=== PATIENT | male | born 1960 | race Caucasian/White ===

== ENCOUNTER 2017-12-23 19:18 | Inpatient (IN) | payer OTHER ==
[~2017-12-23] VITALS: Ht 167.6 cm; Wt 57.2 kg
[2017-12-23] MEDS ORDERED: SODIUM CHLOR 0.9% 1000 ML INJ 1,000 ML IV ONE (19:31)
--- NOTE | 2017-12-23 19:33 | PD ---
HPI Chief Complaint: Eye Problems/Injury Time Seen by Provider: 19:31 Travel History International Travel<30 days: No Contact w/Intl Traveler<30days: No Traveled to known affect area: No History of Present Illness HPI Patient is a 57-year-old male presents emergency department for evaluation of altered mental status. Patient fairly somnolent on arrival is unable to provide much of his history. His only complaints of of left eye swelling and left headache. Per EMS the patient has been complaining of headaches for the past few months and is being worked up in the assisted. He reportedly had an MRI a few days ago but does not know the results yet and has have not been given to him. Not much else is readily available for the history on the patient's arrival. He is escorted by guards from the assisted. [facility] Past Medical History Cancer: Yes (SQUAMOUS CELL ) High Cholesterol: Yes Medical other: Yes (TRIGEMINAL NEURALGIA) Past Surgical History Abdominal Surgery: Yes (HERNIA ) Other Surgery: Yes ("CANCER REMOVED FROM SABIANISM, EAR, NECK AND RIGHT CHEST") Social History Alcohol Use: No Tobacco Use: No Substance Use: No Allergies-Medications (Allergen,Severity, Reaction): Coded Allergies: No Known Allergies (Unverified , 12/23/17) Reported Meds & Prescriptions Reported Meds & Active Scripts Active Reported Pravastatin 20 Mg Tab 20 Mg PO DAILY Zocor (Simvastatin) 5 Mg Tab 5 Mg PO DAILY Review of Systems Except as stated in HPI: all other systems reviewed are Neg Physical Exam Narrative GENERAL: Well-developed, thin male, somnolent bordering on lethargic. Appears older than stated age. SKIN: Focused skin assessment warm/dry. On the left side of his face there is a silver dollar sized area of scar tissue which is well-healed on the left temporal area. EMS states this is from a previous skin cancer which was removed. HEAD: Atraumatic. Normocephalic. EYES: Pupils equal and round. No scleral icterus. No injection or drainage. ENT: No nasal bleeding or discharge. Mucous membranes pink and moist. TMs clear bilaterally, there is some tenderness and area of air edema on the eyelid on the left side, no erythema, conjunctive the are noninflamed. NECK: Trachea midline. No JVD. CARDIOVASCULAR: Regular rate and rhythm. No murmur appreciated. RESPIRATORY: No accessory muscle use. Clear to auscultation. Breath sounds equal bilaterally. GASTROINTESTINAL: Abdomen soft, non-tender, nondistended. Hepatic and splenic margins not palpable. MUSCULOSKELETAL: No obvious deformities. No clubbing. No cyanosis. No edema. NEUROLOGICAL: Awake and alert. Sluggish to respond, follows commands in all 4 extremities, PSYCHIATRIC: Appropriate mood and affect; insight and judgment normal. Data Data Last Documented VS Vital Signs Date Time Temp Pulse Resp B/P (MAP) Pulse Ox O2 Delivery O2 Flow Rate FiO2 12/23/17 19:46 99.0 92 14 160/90 (113) 96 Room Air Orders Orders Complete Blood Count With Diff (12/23/17 19:31) Basic Metabolic Panel (Bmp) (12/23/17 19:31) Ct Brain W/O Iv Contrast(Rout) (12/23/17 19:31) Ecg Monitoring (12/23/17 19:31) Iv Access Insert/Monitor (12/23/17 19:31) Oximetry (12/23/17 19:31) Sodium Chloride 0.9% Flush (Ns Flush) (12/23/17 19:45) Ketorolac Inj (Toradol Inj) (12/23/17 19:45) Diphenhydramine Inj (Benadryl Inj) (12/23/17 19:45) Metoclopramide Inj (Reglan Inj) (12/23/17 19:45) Sodium Chlor 0.9% 1000 Ml Inj (Ns 1000 M (12/23/17 19:31) Ct Facial Bones W/O Iv Cont (12/23/17 ) Drug Screen, Random Urine (12/23/17 19:31) Alcohol (Ethanol) (12/23/17 19:31) Cath For Specimen (12/23/17 19:31) Labs Laboratory Tests Test 12/23/17 19:50 White Blood Count 14.4 TH/MM3 Red Blood Count 3.48 MIL/MM3 Hemoglobin 8.3 GM/DL Hematocrit 26.4 % Mean Corpuscular Volume 76.0 FL Mean Corpuscular Hemoglobin 23.9 PG Mean Corpuscular Hemoglobin Concent 31.4 % Red Cell Distribution Width 15.5 % Platelet Count 626 TH/MM3 Mean Platelet Volume 6.3 FL Neutrophils (%) (Auto) 76.3 % Lymphocytes (%) (Auto) 14.0 % Monocytes (%) (Auto) 8.7 % Eosinophils (%) (Auto) 0.5 % Basophils (%) (Auto) 0.5 % Neutrophils # (Auto) 11.0 TH/MM3 Lymphocytes # (Auto) 2.0 TH/MM3 Monocytes # (Auto) 1.3 TH/MM3 Eosinophils # (Auto) 0.1 TH/MM3 Basophils # (Auto) 0.1 TH/MM3 CBC Comment DIFF FINAL Differential Comment Blood Urea Nitrogen 7 MG/DL Creatinine 0.72 MG/DL Random Glucose 90 MG/DL Calcium Level 9.1 MG/DL Sodium Level 135 MEQ/L Potassium Level 3.9 MEQ/L Chloride Level 102 MEQ/L Carbon Dioxide Level 25.3 MEQ/L Anion Gap 8 MEQ/L Estimat Glomerular Filtration Rate 113 ML/MIN Urine Opiates Screen NEG Urine Barbiturates Screen NEG Urine Amphetamines Screen NEG Urine Benzodiazepines Screen NEG Urine Cocaine Screen NEG Urine Cannabinoids Screen NEG Ethyl Alcohol Level LESS THAN 3 MG/DL MDM Medical Decision Making Medical Screen Exam Complete: Yes Emergency Medical Condition: Yes Differential Diagnosis Brain mass, rhabdomyolysis, facial trauma, dehydration, substance abuse. Narrative Course Patient was room to the emergency department, altered mental status workup was initiated, shortly after his arrival and received records faxed from the alf , apparently has been altered today and can barely walk and having some non- epileptiform tremors. The patient also had an MRI report faxed from December 19 that shows an extensive tumor involving the left side of his face invading most of his facial bones the base of his skull and part of his brain. Speculation is that this may have been a skin cancer that went unchecked for years and is invaded area however this is only speculation at this time. This information was delivered to the patient, he states that his skin cancer was removed in 2004, he been complaining of headaches for 2 years, his eyes started swelling about 12 months ago and he insisted that he see a neurologist however he states he was declined the opportunity. This is an advanced tumor may be an operable, will be admitted to the hospital for consultations neurosurgery hematology oncology and facial surgery. He may ultimately require palliative care consult. Diagnosis Primary Impression: Neoplasm of face Additional Impression: Brain tumor Admitting Information Admitting Physician Requests: Admit Condition: Farrukh Juarez MD Dec 23, 2017 19:33
[2017-12-23] MEDS ORDERED: ZOCO5TAB PO (19:34)
[2017-12-23] MEDS ORDERED: PRAV20TA2 PO (19:34)
[2017-12-23 19:45] VITALS: O2SAT 98
[2017-12-23] MEDS ORDERED: METOCLOPRAMIDE HCL 10 MG/2 ML VIAL IVP ONE (19:45)
[2017-12-23] MEDS ORDERED: SODIUM CHLORIDE 0.9% FLUSH 10 ML FLUSH IVF PRN (19:45)
[2017-12-23] MEDS ORDERED: diphenhydrAMINE HCL 50 MG/ML VIAL IVP ONE (19:45)
[2017-12-23] MEDS ORDERED: KETOROLAC TROMETHAMINE 30 MG/ML (IVP) VIAL IVP ONE (19:45)
[2017-12-23 19:46] VITALS: BP 160/90; PULSE 92; RESP 14; TEMP 99; O2SAT 96
[2017-12-23 20:10] LABS: BASOPHIL # 0.1 TH/MM3 (0-0.2); BASOPHIL % 0.5 % (0.0-2.0); EOSINOPHIL # 0.1 TH/MM3 (0-0.4); EOSINOPHIL % 0.5 % (0.0-4.0); HEMATOCRIT 26.4 % (39.0-51.0); HEMOGLOBIN 8.3 GM/DL (13.0-17.0); MEAN CORPUSCULAR HEMOGLOBIN 23.9 PG (27.0-34.0); MEAN CORPUSCULAR HGB CONC 31.4 % (32.0-36.0); MEAN PLATELET VOLUME 6.3 FL (7.0-11.0); MONO % 8.7 % (0.0-8.0); MONOCYTE # 1.3 TH/MM3 (0-0.9); NEUT % 76.3 % (16.0-70.0); PLATELET COUNT 626 TH/MM3 (150-450); RED BLOOD COUNT 3.48 MIL/MM3 (4.50-5.90); RED CELL DISTRIBUTION WIDTH 15.5 % (11.6-17.2); WHITE BLOOD COUNT 14.4 TH/MM3 (4.0-11.0)
[2017-12-23 20:24] LABS: BICARBONATE 25.3 MEQ/L (21.0-32.0); BLOOD UREA NITROGEN 7 MG/DL (7-18); CALCIUM 9.1 MG/DL (8.5-10.1); CHLORIDE 102 MEQ/L (98-107); CREATININE 0.72 MG/DL (0.60-1.30); GLOMERULAR FILTRATION RATE 113 ML/MIN (>89); GLUCOSE,RANDOM 90 MG/DL (74-106); SODIUM (NA) 135 MEQ/L (136-145)
[2017-12-23] MEDS ORDERED: MORPHINE SULFATE 4 MG/ML INJ IV PUSH ONE (21:00)
--- NOTE | 2017-12-23 21:05 | RADRPT ---
EXAM DATE/TIME: 12/23/2017 20:20 [facility] COMPARISON: No previous studies available for comparison. INDICATIONS : Cephalgia and left side facial swelling. RADIATION DOSE: 45.79 CTDIvol (mGy) MEDICAL HISTORY : Squamous cell cancer. SURGICAL HISTORY : None. ENCOUNTER: Initial ACUITY: 1 yr PAIN SCALE: 7/10 LOCATION: Left cranial TECHNIQUE: Multiple contiguous axial images were obtained of the head. Using automated exposure control and adj ustment of the mA and/or kV according to patient size, radiation dose was kept as low as reasonably a chievable to obtain optimal diagnostic quality images. DICOM format image data is available electro nically for review and comparison. FINDINGS: There is extensive bony destruction of the bones of the left side of the face especially the left sph enoid sinus, posterior ethmoids, [place] of the left orbit, left zygomatic arch and left Guille apex. Th ere is also some extension of tumor into the left middle cranial fossa. Full extent would be better e valuated with coronal MRI. There is opacification of the left mastoid air cells and left temporal bon e air cells. There is no hydrocephalus. There is left-sided proptosis. CONCLUSION: 1. 6.5 cm soft tissue mass in the posterior left face with extensive bony destruction and extension i nto the middle cranial fossa. Left-sided proptosis. Sotero Herndon MD on December 23, 2017 at 21:01 Board Certified Radiologist. This report was verified electronically.
[2017-12-23 21:08] VITALS: BP 164/89; PULSE 97; RESP 16; O2SAT 97
--- NOTE | 2017-12-23 21:08 | RADRPT ---
EXAM DATE/TIME: 12/23/2017 20:20 [facility] COMPARISON: No previous studies available for comparison. INDICATIONS : Left side facial swelling. RADIATION DOSE: 32.08 CTDIvol (mGy) MEDICAL HISTORY : Squamous cell cancer. SURGICAL HISTORY : None. ENCOUNTER: Initial ACUITY: 2 months PAIN SCORE: 7/10 LOCATION: Left facial TECHNIQUE: Volumetric scanning of the facial bones was performed. Using automated exposure control and adjustme nt of the mA and/or kV according to patient size, radiation dose was kept as low as reasonably achiev able to obtain optimal diagnostic quality images. DICOM format image data is available electronicall y for review and comparison. FINDINGS: There is an aggressive approximately 6.5 cm soft tissue mass in the posterior left face with extensiv e bony destruction the left-sided paranasal sinuses including the maxillary sinus, left sphenoid sinu s and left posterior ethmoids. The mass crosses midline in the sphenoid and posterior nasal region an d extends cephalad into the middle cranial fossa. There is left-sided proptosis and destruction of th e lateral wall of the left orbit. There is also possible involvement of the left cavernous sinus. The re is opacification of left maxillary sinus, posterior left ethmoids and left sphenoid invasion into the soft tissues of the left orbit. CONCLUSION: 1. Extensive bony destruction of the left face as above with extension into the middle cranial fossa. Left-sided proptosis. Sotero Herndon MD on December 23, 2017 at 21:03 Board Certified Radiologist. This report was verified electronically.
[2017-12-23] MEDS ORDERED: BISACODYL 10 MG SUPP RECTAL PRN (23:15)
[2017-12-23] MEDS ORDERED: SODIUM CHLORIDE 0.9% FLUSH 10 ML FLUSH IV FLUSH PRN (23:15)
[2017-12-23] MEDS ORDERED: ACETAMINOPHEN 325 MG TAB PO PRN (23:15)
[2017-12-23] MEDS ORDERED: LACTULOSE SYRUP 20 GM/30 ML CUP PO PRN (23:15)
[2017-12-23] MEDS ORDERED: MAGNESIUM HYDROXIDE SUSP 30 ML CUP PO PRN (23:15)
[2017-12-23] MEDS ORDERED: ONDANSETRON HCL 4 MG/2 ML VIAL IVP PRN (23:15)
[2017-12-23] MEDS ORDERED: SENNOSIDES 8.6 MG TAB PO PRN (23:15)
[2017-12-23] MEDS ORDERED: NALOXONE HCL 0.4 MG/ML AMP IV PUSH PRN (23:15)
[2017-12-24] VITALS (10 sets, daily range): BP systolic 128–153; BP diastolic 80–94; PULSE 72–92; RESP 16–18; TEMP 97.7–99.3; O2SAT 95–98
[2017-12-24] MEDS: MORPHINE SULFATE 4 MG/ML INJ IV PUSH PRN ×7 (00:12→23:56)
--- NOTE | 2017-12-24 00:54 | HHI.HP ---
[facility] Unknown Admission Diagnosis Brain/Face Mass. Diagnoses: Travel History International Travel<30 Days: No Contact w/Intl Traveler <30 Da: No Traveled to Known Affected Are: No History of Present Illness 57-year-old male with a past medical history significant for hypertension and trigeminal neuralgia presents to the emergency department her evaluation of a headache. The patient is incarcerated and has been complaining of headaches that began in September 2013. The patient had an outpatient MRI done which he does not know the results. He reports that he lost eyesight in his left eye and hearing in his left ear in May 2017. He endorses blurry vision and nosebleeds with increasing weakness and left jaw tightness. The patient has a history of squamous cell excision of the left anglican in 2004. Head CT done in the emergency department significant for large soft tissue mass in the posterior left face with extensive bony destruction and extension to the middle cranial fossa. Patient denies any seizures. No chest pain/shortness of breath. No abdominal pain. No nausea/vomiting/diarrhea. Review of Systems Except as stated in HPI: all other systems reviewed are Neg Past Family Social History Past Medical History Hypertension Trigeminal neuralgia Past Surgical History Multiple basal cell carcinomas removed off various parts of the patient's arms and chest Squamous cell carcinoma excision of the left anglican in 2004 with skin graft Tonsillectomy Hernia repair Reported Medications Reported Meds & Active Scripts Active Reported Pravastatin 20 Mg Tab 20 Mg PO DAILY Zocor (Simvastatin) 5 Mg Tab 5 Mg PO DAILY Allergies: Coded Allergies: No Known Allergies (Unverified , 12/23/17) Family History Negative for CAD/DM Social History Positive for tobacco. Denies alcohol and illicit drugs Physical Exam Vital Signs Vital Signs Date Time Temp Pulse Resp B/P (MAP) Pulse Ox O2 Delivery O2 Flow Rate FiO2 12/23/17 21:08 97 16 164/89 (114) 97 Room Air 12/23/17 19:46 99.0 92 14 160/90 (113) 96 Room Air 12/23/17 19:45 98 Room Air 12/23/17 19:28 96 14 Physical Exam GENERAL: Thin, male sitting up in bed SKIN: No rashes, ecchymoses or lesions. Cool and dry. HEAD: Atraumatic. Normocephalic. No temporal or scalp tenderness. EYES: Pupils equal round and reactive. Left proptosis. ENT: Nose without bleeding, purulent drainage or septal hematoma. Throat without erythema, tonsillar hypertrophy or exudate. Uvula midline. Airway patent. NECK: Trachea midline. No JVD or lymphadenopathy. Supple, nontender, no meningeal signs. CARDIOVASCULAR: Regular rate and rhythm without murmurs, gallops, or rubs. RESPIRATORY: Clear to auscultation. Breath sounds equal bilaterally. No wheezes , rales, or rhonchi. GASTROINTESTINAL: Abdomen soft, non-tender, nondistended. No hepato-splenomegaly , or palpable masses. No guarding. MUSCULOSKELETAL: Extremities without clubbing, cyanosis, or edema. No joint tenderness, effusion, or edema noted. No calf tenderness. NEUROLOGICAL: Awake and alert. Cranial nerves II through XII intact. Motor and sensory grossly within normal limits. Normal speech. Laboratory Laboratory Tests Test 12/23/17 19:50 White Blood Count 14.4 Red Blood Count 3.48 Hemoglobin 8.3 Hematocrit 26.4 Mean Corpuscular Volume 76.0 Mean Corpuscular Hemoglobin 23.9 Mean Corpuscular Hemoglobin Concent 31.4 Red Cell Distribution Width 15.5 Platelet Count 626 Mean Platelet Volume 6.3 Neutrophils (%) (Auto) 76.3 Lymphocytes (%) (Auto) 14.0 Monocytes (%) (Auto) 8.7 Eosinophils (%) (Auto) 0.5 Basophils (%) (Auto) 0.5 Neutrophils # (Auto) 11.0 Lymphocytes # (Auto) 2.0 Monocytes # (Auto) 1.3 Eosinophils # (Auto) 0.1 Basophils # (Auto) 0.1 CBC Comment DIFF FINAL Differential Comment Blood Urea Nitrogen 7 Creatinine 0.72 Random Glucose 90 Calcium Level 9.1 Sodium Level 135 Potassium Level 3.9 Chloride Level 102 Carbon Dioxide Level 25.3 Anion Gap 8 Estimat Glomerular Filtration Rate 113 Urine Opiates Screen NEG Urine Barbiturates Screen NEG Urine Amphetamines Screen NEG Urine Benzodiazepines Screen NEG Urine Cocaine Screen NEG Urine Cannabinoids Screen NEG Ethyl Alcohol Level LESS THAN 3 Result Diagram: 12/23/17 1950 12/23/171949 Caprini VTE Risk Assessment Caprini VTE Risk Assessment: No/Low Risk (score <= 1) Caprini Risk Assessment Model Point Value = 1 Point Value = 2 Point Value = 3 Point Value = 5 Age 41-60 Minor surgery BMI > 25 kg/m2 Swollen legs Varicose veins or History of unexplained or recurrent spontaneous Oral contraceptives or hormone replacement Sepsis (< 1 month) Serious lung disease, including pneumonia (< 1 month) Abnormal pulmonary function Acute myocardial infarction Congestive heart failure (< 1 month) History of inflammatory bowel disease Medical patient at bed rest Age 61-74 Arthroscopic surgery Major open surgery (> 45 min) Laparoscopic surgery (> 45 min) Malignancy Confined to bed (> 72 hours) Immobilizing plaster cast Central venous access Age >= 75 History of VTE Family history of VTE Factor V Leiden Prothrombin [id number] Lupus anticoagulant Anticardiolipin antibodies Elevated serum homocysteine Heparin-induced thrombocytopenia Other congenital or acquired thrombophilia Stroke (< 1 month) Elective arthroplasty Hip, pelvis, or leg fracture Acute spinal cord injury (< 1 month) Prophylaxis Regimen Total Risk Factor Score Risk Level Prophylaxis Regimen 0-1 Low Early ambulation 2 Moderate Order ONE of the following: *Sequential Compression Device (SCD) *Heparin 5000 units SQ BID 3-4 Higher Order ONE of the following medications: *Heparin 5000 units SQ TID *Enoxaparin/Lovenox 40 mg SQ daily (WT < 150 kg, CrCl > 30 mL/min) *Enoxaparin/Lovenox 30 mg SQ daily (WT < 150 kg, CrCl > 10-29 mL/min) *Enoxaparin/Lovenox 30 mg SQ BID (WT < 150 kg, CrCl > 30 mL/min) AND/OR *Sequential Compression Device (SCD) 5 or more Highest Order ONE of the following medications: *Heparin 5000 units SQ TID (Preferred with Epidurals) *Enoxaparin/Lovenox 40 mg SQ daily (WT < 150 kg, CrCl > 30 mL/min) *Enoxaparin/Lovenox 30 mg SQ daily (WT < 150 kg, CrCl > 10-29 mL/min) *Enoxaparin/Lovenox 30 mg SQ BID (WT < 150 kg, CrCl > 30 mL/min) AND *Sequential Compression Device (SCD) Assessment and Plan Assessment and Plan Assessment/plan: 1. Large soft tissue mass CT of the head significant for 6.5 cm soft tissue mass in the posterior left base with extensive bony destruction and extension into the middle cranial fossa , personally reviewed Medical oncology, neurosurgery and OMFS consulted, appreciate recommendations and assistance Morphine for pain 2. Hypertension Patient not currently on antihypertensive Clonidine when necessary 3. Trigeminal neuralgia Symptoms may be secondary to mass Morphine as above FEN Regular diet Electrolytes: Replete when necessary Ambulation Physician Certification 2 Midnight Certification Type: Admission for Inpatient Services Order for Inpatient Services The services are ordered in accordance with Medicare regulations or non- Medicare payer requirements, as applicable. In the case of services not specified as inpatient-only, they are appropriately provided as inpatient services in accordance with the 2-midnight benchmark. Estimated LOS (days): 2 2 days is the estimated time the patient will need to remain in the hospital, assuming treatment plan goals are met and no additional complications. Post-Hospital Plan: Not yet determined Melvi Jeffries MD Dec 24, 2017 00:54
[2017-12-24 06:37] LABS: AUTOMATED NEUTROPHIL # 6.2 TH/MM3 (1.8-7.7); BASOPHIL # 0.1 TH/MM3 (0-0.2); EOSINOPHIL # 0.1 TH/MM3 (0-0.4); EOSINOPHIL % 1.2 % (0.0-4.0); HEMATOCRIT 27.6 % (39.0-51.0); HEMOGLOBIN 8.8 GM/DL (13.0-17.0); LYMPH % 21.2 % (9.0-44.0); MEAN CELL VOLUME 76.5 FL (80.0-100.0); MEAN CORPUSCULAR HEMOGLOBIN 24.4 PG (27.0-34.0); MEAN PLATELET VOLUME 6.2 FL (7.0-11.0); NEUT % 65.6 % (16.0-70.0); PLATELET COUNT 644 TH/MM3 (150-450); RED BLOOD COUNT 3.61 MIL/MM3 (4.50-5.90); RED CELL DISTRIBUTION WIDTH 15.5 % (11.6-17.2); WHITE BLOOD COUNT 9.5 TH/MM3 (4.0-11.0)
[2017-12-24 07:05] LABS: BICARBONATE 27.5 MEQ/L (21.0-32.0); CALCIUM 9.5 MG/DL (8.5-10.1); CREATININE 0.8 MG/DL (0.60-1.30)
[2017-12-24] MEDS ORDERED: SODIUM CHLORIDE 0.9% FLUSH 10 ML FLUSH IV FLUSH SCH (09:00)
[2017-12-24] MEDS ORDERED: DOCUSATE SODIUM 50 MG/SENNA 8.6 MG TAB PO SCH (09:00)
[2017-12-24] MEDS ORDERED: ASPI81TA23 PO (10:45)
[2017-12-24] MEDS ORDERED: TEGR400T PO (10:45)
--- NOTE | 2017-12-24 11:14 | RADRPT ---
EXAM DATE/TIME: 12/23/2017 20:20 [facility] COMPARISON: CT FACIAL BONES W/O CONTRAST, December 23, 2017, 20:20. INDICATIONS : Facial/head mass. ; Reconstructed from previous dataset, no dose MEDICAL HISTORY : Carcinoma, squamous cell. SURGICAL HISTORY : None. ENCOUNTER: Initial ACUITY: 1 day PAIN SCALE: 0/10 LOCATION: facial TECHNIQUE: 3D reconstructions of the facial bones were performed. DICOM format image data is available [facility] for review and comparison. FINDINGS: 3-D reconstructions of the facial bones show distraction of the of the base of the left middle crania l fossa, left temporal bone as well as the lateral and superior potter of the left orbit. CONCLUSION: 3-D reconstruction of the facial bones as above. Vaughn Quiros MD on December 24, 2017 at 11:08 Board Certified Radiologist. This report was verified electronically.
[2017-12-24] MEDS ORDERED: MORPHINE SULFATE 2 MG/ML SYRINGE IV PUSH PRN (11:15)
[2017-12-24] MEDS ORDERED: ACETAMINOPHEN 325 MG TAB PO PRN (11:15)
[2017-12-24] MEDS ORDERED: METOCLOPRAMIDE HCL 10 MG/2 ML VIAL IV PUSH PRN (11:15)
[2017-12-24] MEDS ORDERED: SENNOSIDES 8.6 MG TAB PO PRN (11:15)
[2017-12-24] MEDS ORDERED: NALOXONE HCL 0.4 MG/ML AMP IV PUSH PRN (11:15)
[2017-12-24] MEDS ORDERED: LACTULOSE SYRUP 20 GM/30 ML CUP PO PRN (11:15)
[2017-12-24] MEDS ORDERED: ONDANSETRON HCL 4 MG/2 ML VIAL IVP PRN (11:15)
[2017-12-24] MEDS ORDERED: BISACODYL 10 MG SUPP RECTAL PRN (11:15)
[2017-12-24] MEDS ORDERED: MAGNESIUM HYDROXIDE SUSP 30 ML CUP PO PRN (11:15)
[2017-12-24] MEDS ORDERED: oxyCODONE/ACETAMINOPHEN 5 MG/325 MG TAB PO PRN (11:15)
--- NOTE | 2017-12-24 11:18 | HHI.PR ---
Subjective Remarks 57-year-old male with a past medical history significant for hypertension and trigeminal neuralgia presents to the emergency department her evaluation of a headache. The patient is incarcerated and has been complaining of headaches that began in September 2013. The patient had an outpatient MRI done which he does not know the results. He reports that he lost eyesight in his left eye and hearing in his left ear in May 2017. He endorses blurry vision and nosebleeds with increasing weakness and left jaw tightness. 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 Head CT done in the emergency department significant for large soft tissue mass in the posterior left face with extensive bony destruction and extension to the middle cranial fossa. Patient denies any seizures. No chest pain/shortness of breath. No abdominal pain. No nausea/vomiting/diarrhea. 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 CAN BARELY SEE SHADOWS OUT OF LEFT EYE Discussed with patient and RN and case management and the GUARDS AT SIDE OF THE BED Objective Vitals Vital Signs Date Time Temp Pulse Resp B/P (MAP) Pulse Ox O2 Delivery O2 Flow Rate FiO2 12/24/17 04:00 75 12/24/17 03:26 98.2 79 16 151/94 (113) 97 12/24/17 01:00 92 12/24/17 00:51 12/23/17 21:08 97 16 164/89 (114) 97 Room Air 12/23/17 19:46 99.0 92 14 160/90 (113) 96 Room Air 12/23/17 19:45 98 Room Air 12/23/17 19:28 96 14 I/O 12/23/17 12/23/17 12/23/17 12/24/17 12/24/17 12/24/17 07:00 15:00 23:00 07:00 15:00 23:00 Intake Total 1000 ml 480 ml Balance 1000 ml 480 ml Intake Oral 480 ml IV Total 1000 ml # Voids 2 Result Diagram: 12/24/17 0604 12/24/17 0604 Other Results Laboratory Tests Test 12/23/17 19:50 12/24/17 06:04 White Blood Count 14.4 TH/MM3 9.5 TH/MM3 Red Blood Count 3.48 MIL/MM3 3.61 MIL/MM3 Hemoglobin 8.3 GM/DL 8.8 GM/DL Hematocrit 26.4 % 27.6 % Mean Corpuscular Volume 76.0 FL 76.5 FL Mean Corpuscular Hemoglobin 23.9 PG 24.4 PG Mean Corpuscular Hemoglobin Concent 31.4 % 32.0 % Red Cell Distribution Width 15.5 % 15.5 % Platelet Count 626 TH/MM3 644 TH/MM3 Mean Platelet Volume 6.3 FL 6.2 FL Neutrophils (%) (Auto) 76.3 % 65.6 % Lymphocytes (%) (Auto) 14.0 % 21.2 % Monocytes (%) (Auto) 8.7 % 11.0 % Eosinophils (%) (Auto) 0.5 % 1.2 % Basophils (%) (Auto) 0.5 % 1.0 % Neutrophils # (Auto) 11.0 TH/MM3 6.2 TH/MM3 Lymphocytes # (Auto) 2.0 TH/MM3 2.0 TH/MM3 Monocytes # (Auto) 1.3 TH/MM3 1.0 TH/MM3 Eosinophils # (Auto) 0.1 TH/MM3 0.1 TH/MM3 Basophils # (Auto) 0.1 TH/MM3 0.1 TH/MM3 CBC Comment DIFF FINAL DIFF FINAL Differential Comment Blood Urea Nitrogen 7 MG/DL 6 MG/DL Creatinine 0.72 MG/DL 0.80 MG/DL Random Glucose 90 MG/DL 98 MG/DL Calcium Level 9.1 MG/DL 9.5 MG/DL Sodium Level 135 MEQ/L 138 MEQ/L Potassium Level 3.9 MEQ/L 4.0 MEQ/L Chloride Level 102 MEQ/L 103 MEQ/L Carbon Dioxide Level 25.3 MEQ/L 27.5 MEQ/L Anion Gap 8 MEQ/L 8 MEQ/L Estimat Glomerular Filtration Rate 113 ML/MIN 100 ML/MIN Urine Opiates Screen NEG Urine Barbiturates Screen NEG Urine Amphetamines Screen NEG Urine Benzodiazepines Screen NEG Urine Cocaine Screen NEG Urine Cannabinoids Screen NEG Ethyl Alcohol Level LESS THAN 3 MG/DL Imaging Last Impressions Head CT 12/23/171930 Signed Impressions: Service Date/Time: Saturday, December 23, 2017 20:20 - CONCLUSION: 1. 6.5 cm soft tissue mass in the posterior left face with extensive bony destruction and extension into the middle cranial fossa. Left-sided proptosis. Sotero Herndon MD Maxillofacial CT 12/23/17 0000 Signed Impressions: Service Date/Time: Saturday, December 23, 2017 20:20 - CONCLUSION: 1. Extensive bony destruction of the left face as above with extension into the middle cranial fossa. Left-sided proptosis. Sotero Herndon MD Objective Remarks GENERAL: Awake alert oriented talkative and cooperative has some hearing loss he states some left ear SKIN: Warm and dry. Left eye is abnormal in appearance with swelling around the orbit and eyelid HEAD: Atraumatic. Normocephalic. Decreased hearing left side EYES: Pupils equal and round. No scleral icterus. No injection or drainage. Left eye is of normal in appearance with swelling around the orbit and eyelid left side proptosis ENT: No nasal bleeding or discharge. Mucous membranes pink and moist. Tongue is midline NECK: Trachea midline. No JVD. CARDIOVASCULAR: Regular rate and rhythm. S1-S2 no S3 or S4 no heave or thrill or rub or gallop RESPIRATORY: No accessory muscle use. Clear to auscultation. Breath sounds equal bilaterally. GASTROINTESTINAL: Abdomen soft, non-tender, nondistended. Hepatic and splenic margins not palpable. MUSCULOSKELETAL: Extremities without clubbing, cyanosis, or edema. No obvious deformities. NEUROLOGICAL: Awake and alert. No obvious cranial nerve deficits. Motor grossly within normal limits. Five out of 5 muscle strength in the arms and legs. Normal speech. PSYCHIATRIC: Appropriate mood and affect; insight and judgment normal. Medications and IVs Current Medications Sodium Chloride (NS Flush) 2 ml UNSCH PRN IVF FLUSH AFTER USING IV ACCESS; Start 12/23/17 at 19:45; Stop 12/23/17 at 23:22; Status DC Ketorolac Tromethamine (Toradol Inj) 30 mg ONCE ONCE IVP Last administered on 12/23/17at 19:41; Start 12/23/17 at 19:45; Stop 12/23/17 at 19:46; Status DC Diphenhydramine HCl (Benadryl Inj) 25 mg ONCE ONCE IVP Last administered on 12/23/17at 19:41; Start 12/23/17 at 19:45; Stop 12/23/17 at 19:46; Status DC Metoclopramide HCl (Reglan Inj) 10 mg ONCE ONCE IVP Last administered on at 19:41; Start 12/23/17 at 19:45; Stop 12/23/17 at 19:46; Status DC Sodium Chloride 1,000 ml @ 1,000 mls/hr Q1H ONCE IV Last administered on at 19:40; Start 12/23/17 at 19:31; Stop 12/23/17 at 20:30; Status DC Morphine Sulfate (Morphine Inj) 4 mg ONCE ONCE IV PUSH Last administered on 12/23/17at 21:05; Start 12/23/17 at 21:00; Stop 12/23/17 at 21:01; Status DC Morphine Sulfate (Morphine Inj) 4 mg Q3H PRN IV PUSH pain 6-10 Last administered on 12/24/17at 09:39; Start 12/23/17 at 23:15 Sodium Chloride (NS Flush) 2 ml UNSCH PRN IV FLUSH FLUSH AFTER USING IV ACCESS ; Start 12/23/17 at 23:15 Sodium Chloride (NS Flush) 2 ml BID IV FLUSH Last administered on 12/24/17at 09: 39; Start 12/24/17 at 09:00 Acetaminophen (Tylenol) 650 mg Q4H PRN PO TEMP > 100.4; Start 12/23/17 at 23:15 Ondansetron HCl (Zofran Inj) 4 mg Q6H PRN IVP NAUSEA OR VOMITING; Start at 23:15 Naloxone HCl (Narcan Inj) 0.4 mg UNSCH PRN IV PUSH SEE LABEL COMMENTS; Start at 23:15 Senna/Docusate Sodium (Rose-Colace) 1 tab BID PO ; Start 12/24/17 at 09:00 Magnesium Hydroxide (Milk Of Magnesia Liq) 30 ml Q12H PRN PO Mild constipation ; Start 12/23/17 at 23:15 Sennosides (Senokot) 17.2 mg Q12H PRN PO Moderate constipation; Start 12/23/17 at 23:15 Bisacodyl (Dulcolax Supp) 10 mg DAILY PRN RECTAL SEVERE CONSITIPATION/ IF NPO ; Start 12/23/17 at 23:15 Lactulose (Lactulose Liq) 30 ml DAILY PRN PO SEVERE CONSITIPATION/ IF PO; Start 12/23/17 at 23:15 A/P Assessment and Plan 1. Large soft tissue mass CT of the head significant for 6.5 cm soft tissue mass in the posterior left base with extensive bony destruction and extension into the middle cranial fossa , personally reviewed Medical oncology, neurosurgery and OMFS consulted, appreciate recommendations and assistance Morphine for pain Percocet as needed 2. Hypertension Patient not currently on antihypertensive Clonidine when necessary 3. Trigeminal neuralgia Symptoms may be secondary to mass Morphine as above FEN Regular diet Electrolytes: Replete when necessary Ambulation Discharge Planning Pending seeing all consultants Gabriel Causey DO Dec 24, 2017 11:18
[2017-12-24] MEDS ORDERED: CARBAMAZEPINE 400 MG PO SCH (11:30)
[2017-12-24 12:04] LABS: INTERNATIONAL NORMALIZED RATIO 0.9 RATIO; PROTHROMBIN TIME - PATIENT 9.6 SEC (9.8-11.6)
--- NOTE | 2017-12-24 13:04 | EKG ---
Date Performed: 12/24/2017 Time Performed: 09:20:41 PTAGE: 57 years EKG: Sinus rhythm NORMAL ECG NO PREVIOUS TRACING DOCTOR: Ryder Fiore Interpretating Date/Time 12/24/2017 13:02:20
[2017-12-24] MEDS: oxyCODONE/ACETAMINOPHEN 10 MG/325 MG TAB PO PRN (13:31)
--- NOTE | 2017-12-24 13:45 | RADRPT ---
EXAM DATE/TIME: 12/24/2017 12:55 [facility] COMPARISON: No previous studies available for comparison. INDICATIONS : Syncope. MEDICAL HISTORY : Squamous cell cancer. SURGICAL HISTORY : None. ENCOUNTER: Subsequent ACUITY: 2 days PAIN SCORE: 0/10 LOCATION: Bilateral chest FINDINGS: PA and lateral views of the chest demonstrate the lungs to be symmetrically aerated without evidence of mass, infiltrate or effusion. No evidence of pneumothorax. The cardiomediastinal contours are un remarkable. Osseous structures are intact. CONCLUSION: The lungs are clear. Kuldeep Manuel MD on December 24, 2017 at 13:42 Board Certified Radiologist. This report was verified electronically.
[2017-12-24] MEDS ORDERED: GADODIAMIDE PF 287 MG/ML 20 ML VIAL (for RAD MRI) IVCONTRAST ONE (14:09)
--- NOTE | 2017-12-24 14:10 | RADRPT ---
EXAM DATE/TIME: 12/24/2017 12:03 [facility] COMPARISON: CT BRAIN W/O CONTRAST, December 23, 2017, 20:20. INDICATIONS : Mass. CONTRAST: 20 cc Omniscan (gadodiamide) IV MEDICAL HISTORY : Carcinoma, squamous cell. SURGICAL HISTORY : Multiple squamous cell carcinomas removed. ENCOUNTER: Subsequent ACUITY: 2 day PAIN SCORE: 3/10 LOCATION: head. TECHNIQUE: Multiplanar, multisequence MRI of the brain was performed both prior to and following the administrat ion of paramagnetic contrast. FINDINGS: CEREBRUM: The ventricles are normal for age. No evidence of midline shift, mass lesion, hemorrhage or acute in farction. No extraaxial fluid collections are seen. The pituitary gland and suprasellar cistern are normal in configuration. WHITE MATTER: No significant signal abnormalities are seen in the white matter. POSTERIOR FOSSA: The cerebellum and brainstem are intact. The 4th ventricle is midline. The cerebellopontine angle is unremarkable. The cerebellar tonsils are normal in position. DIFFUSION IMAGING: No focal areas of intra-axial restricted diffusion are seen. No evidence of acute infarction. EXTRACRANIAL: Greater than 8.7 cm mass with epicenter in the LEFT sphenoid bone destroying the bone and extending c oncentrically in all directions. There is a heterogeneous pattern of enhancement throughout this inf iltrating mass. Anteriorly, the mass extends and causes mass effect upon the right orbit causing int ernal bowing of the lateral orbital wall and elevation of the posterior left orbit. There is loss of delineation of the fat plane between the mass and the inferior rectus muscle and the optic nerve sug gesting orbital invasion. Medially, the mass extends into the nasal cavity across the midline and co mes in contact with the medial wall of the RIGHT maxillary sinus.. Posteriorly, the mass extends int o the clivus and fills the left sphenoid sinus. Enhancing material surrounds the cavernous portion o f the left internal carotid artery suggesting possible encasement. The supraclinoid carotid appears grossly intact. There is also mass effect upon the anterior wall of the middle cranial fossa and ailyn e enhancement of the dura in the left temporal region extending to the mid convexity parietal region. The dural enhancement is asymmetric and suggest that there may direct extension or tracking along t he external margin of the dura. The mass encases the left mandibular condyle and fills the TMJ. Inf erior extension down to the angle of the left mandible. There is inward displacement of the left pos terior pharyngeal space, but no extension into the parapharyngeal space. CONCLUSION: 1. Large enhancing infiltrating mass in the left sphenoid bone measuring in excess of 8.7 cm, causing deformity of the left orbit with possible intraorbital extension posteriorly, extension across the m idline in the posterior nasal pharynx, probable encasement of the cavernous carotid artery, infiltrat ion around the left mandibular condyle, and causing mass effect on the anterior middle cranial fossa with possible extension along the dura of the middle cranial fossa. No definite evidence of intracra nial extension the inner middle cranial fossa. Kuldeep Manuel MD on December 24, 2017 at 13:56 Board Certified Radiologist. This report was verified electronically.
--- NOTE | 2017-12-24 14:12 | RADRPT ---
EXAM DATE/TIME: 12/24/2017 12:03 [facility] COMPARISON: No previous studies available for comparison. INDICATIONS : Mass. MEDICAL HISTORY : Carcinoma, squamous cell. SURGICAL HISTORY : Multiple squamous cell carcinomas removed. ENCOUNTER: Subsequent ACUITY: 2 day PAIN SCORE: 3/10 LOCATION: head. Please note a normal MRA of the brain does not entirely exclude the possibility of a small aneurysm, nor the possibility of distal intracranial vessel disease. TECHNIQUE: 3D time of flight MRA was performed. Source images, multiplanar STS MIP, and 3D volume MIP reconstru ctions were reviewed. FINDINGS: There is excellent visualization of the major intracranial arteries out to the second-order branch ve ssels. There is no evidence for aneurysm, vessel truncation or stenosis, and no evidence for vascula r malformation. Flow is seen in the left PCOM. No flow in the right PCOM or anterior communicating artery. Special attention is directed to the internal carotid artery in the cavernous region. The diameter o f the cavernous portion of the left internal carotid is symmetric with the contralateral side and the re is a similar degree of flow. The large sphenoid mass does come in contact with the cavernous port ion from 9: 00 to 5:00 suggesting that the mass does come into direct contact with the carotid. Flow is seen in the left ophthalmic artery into the posterior orbit. CONCLUSION: Symmetric diameter an intact flow in the internal carotid artery. Some flow is documented in the lef t ophthalmic artery. Kuldeep Manuel MD on December 24, 2017 at 14:07 Board Certified Radiologist. This report was verified electronically.
--- NOTE | 2017-12-24 14:14 | RADRPT ---
EXAM DATE/TIME: 12/24/2017 12:03 [facility] COMPARISON: No previous studies available for comparison. INDICATIONS : Stenosis. CONTRAST: 20 cc Omniscan (gadodiamide) IV MEDICAL HISTORY : Carcinoma, squamous cell. SURGICAL HISTORY : Multiple squamous cell carcinomas removed. ENCOUNTER: Subsequent ACUITY: 2 day PAIN SCORE: 0/10 LOCATION: neck. Percent stenosis is calculated using the diameter of the stenotic region over the diameter of the nor mal distal internal carotid artery. TECHNIQUE: Bolus infused MRA of the extracranial circulation was performed using a neurovascular coil. Post pro cessing was performed including rotating subvolume maximum intensity projections of each carotid jennifer ry, rotating full volume maximum intensity projections of both carotid arteries, sagittal and coronal sliding thin slab reformations of each carotid artery, and left oblique sliding thin slab reformatio n through the aortic arch to include the origin of the arch branch vessels. FINDINGS: AORTIC ARCH: There is a three vessel origin of the great vessels from the aorta. No evidence of ostial narrowing. RIGHT CAROTID: The common carotid artery is intact. The carotid bulb has a normal configuration without ulceration or narrowing. The internal carotid artery lumen is smooth without stenosis. The external carotid ar susan is intact. LEFT CAROTID: The common carotid artery is intact. The carotid bulb has a normal configuration without ulceration or narrowing. The internal carotid artery lumen is smooth without stenosis. The external carotid ar susan is intact. VERTEBRALS: Left dominant vertebral system. CONCLUSION: No stenotic lesions seen. Left dominant vertebral system. Kuldeep Manuel MD on December 24, 2017 at 14:10 Board Certified Radiologist. This report was verified electronically.
--- NOTE | 2017-12-24 17:13 | MB ---
cc: Brian Maradiaga DMD DATE: 12/24/2017 REASON FOR CONSULTATION: Mass, left face, sinus. HISTORY OF PRESENT ILLNESS He is a 57-year-old male who has been having a problem on the left side of his face with visual involvement since last 05/2017. He also reports that he began to have altered sensation to the left side of his face and his teeth and gingiva since 11/2016. Now, he reports that he cannot see from his left eye and hearing on the left ear is also affect. I have seen and examined this patient this afternoon. He is alert, awake and oriented x 3, in no acute distress. His police department guards are with him at bedside. PAST MEDICAL HISTORY: Reports blood pressure, also trigeminal neuralgia. PAST SURGICAL HISTORY: Basal cell carcinoma removal, squamous cell carcinoma, left yazidism, in 2004 with a skin graft. Tonsillectomy. MEDICATIONS: Pravastatin and Zocor. ALLERGIES: DENIED. SOCIAL HISTORY: Smoking. Denies alcohol, any illicit drug use. PHYSICAL EXAMINATION: VITAL SIGNS: Temperature is 98.0, pulse is 82, respirations 18, blood pressure is 144/80 with oxygen saturation of 96%. HEENT: Facial bones being examined. Left side V2 paresthesia noted. Left eye is proptotic. No gross visual acuity that is noted. Right eye appears normal. Eyes are reactive to light and accommodation. He has got a previous area of skin graft noted in the left temporal region. Intraorally, tissue looked pink and well perfused. Left-sided V2 paresthesia also. No facial edema. No intraoral edema that is noted. No active discharge noted. He has got hypernasal speech on the left side. The patient says he is not able to breathe through his nose and his speech is affected because of the left blockage of the left side of his face intraorally/intrasinus region. DIAGNOSTIC DATA: CT scan of facial bones shows a large destructive mass that is noted on the left maxillary sinus, extending from his maxillary sinus into his ethmoid going up to his sphenoid sinusitis. It looks like bone destruction that is all noted. Left eye is proptotic. LABORATORY DATA: White count is 7.5 with an H and H of 8.5 and 27.6 with platelets of 644. 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 Appears to be malignant neoplasm. Will advise to consult ear, nose and throat or send the patient to a higher tertiary area that can manage this neoplasm. Brian Maradiaga DMD RT/SB , 04:41 PM , 05:12 PM
--- NOTE | 2017-12-24 18:25 | MB ---
cc: Adrien Jose MD DATE: 12/24/2017 REASON FOR CONSULTATION: Facial/sinus mass with extension into the skull base and intracranial and orbit. HISTORY OF PRESENT ILLNESS: A 57-year-old gentleman who has been an inmate at the [facility] for the past 4 or 5 years. He has a history of a left temporal squamous cell skin cancer resection, which recurred requiring subsequent resection with a skin graft done at [facility] a little over 10 years ago. He states for the past several years, he has had complaints of worsening headaches in the left side of the face that started about 4 years ago. He has also had numbness in his face along with facial pain since 11/2016 and subsequently also lost vision in the left eye with hearing loss since 05/2017. More recently, he had an MRI scan of the brain, which revealed extensive facial, orbital and intracranial mass, and he presented to the emergency room last evening for altered mental status with somnolence, along with left eye proptosis and headaches. CT scan of the head was obtained, which revealed a very destructive mass involving the left side of the face extending into the maxillary sinus, the ethmoid sinus, sphenoid sinus and destruction of the whole left middle fossa skull base and part of the orbital roof, frontal floor and the lateral orbital wall. This extends intracranially all the way from the lateral aspect to the cavernous sinus with compression of the overlying temporal lobe with the intraorbital extension also. Subsequent MRI scan imaging confirms this mass with extracranial likely origin and intracranial and orbital extension. MR angiogram of the neck and brain did not show any vascular stenosis. He denies any numbness or paresthesias in his upper or lower extremities. PAST MEDICAL HISTORY: Left holiness squamous cell carcinoma, status post resection in 2004 with subsequent recurrence and resection with skin graft at [facility]. He has also had a right anterior chest wall shoulder area skin cancer resection, although he is not sure of the exact pathology. Left trigeminal neuralgia, hypertension, tonsillectomy, hernia repair, other areas of skin cancer resection also with basal cell carcinomas, hyperlipidemia. MEDICATIONS: Zocor 5 mg daily and pravastatin 20 mg daily. ALLERGIES: NO KNOWN DRUG ALLERGIES. FAMILY HISTORY: Denies any history of cancer, coronary artery disease or diabetes in the family. SOCIAL HISTORY: Denies any alcohol use, although does smoke cigarettes. He is a prisoner in [facility] for the past 4-5 years. He is single. REVIEW OF SYSTEMS: Positive for chronic headaches, left eye vision loss, left hearing loss, left facial numbness, left facial dysesthetic pain, left eye proptosis and limited lateral movement. Complains of intermittent blood through his nose. Complains of difficulty breathing through the nose. All other systems are negative. Pertinent positives and negatives are mentioned in the history of present illness and review of systems. LABORATORY STUDIES: White blood cell count 9.5, hemoglobin 8.8, platelet count of 644. PT 9.6, INR 0.9, PTT 28.1. Sodium 138, potassium 4.0, BUN 6, creatinine 0.8, glucose 98. Toxicology screen is negative. PHYSICAL EXAMINATION: VITAL SIGNS: Temperature 98, pulse 82, respiratory rate 18, blood pressure 144/88, oxygen saturation is 97% on room air. GENERAL CONDITION: This is a middle-aged gentleman, who is lying in bed with 2 alf guards at the bedside with his leg secured to the bed with cuffs. No acute distress. HEAD: He has a proptosis on the left eye. He has a soft tissue swelling and mass in the left frontal temporal and face. He has an oval large left temporal skin graft. NECK: Supple with no guarding or rigidity. Midline trachea. CHEST: Clear to auscultation bilaterally. HEART: Regular rate and rhythm. Normal S1, S2. ABDOMEN: Soft, nontender. No hepatosplenomegaly. EXTREMITIES: No cyanosis, edema, or deformity. SKIN: No rash, breakdown or pustules. He has a left holiness skin graft and also a right anterior chest wall large skin incision, which is healed well, for his skin cancer resection. NEUROLOGIC: He is awake, alert. He is oriented. Pupils are equal, reactive. He has limited extraocular motility in left lateral gaze. I cannot count fingers with the left eye. There is some light perception noted. He has numbness in left side of face. He has a slight left facial droop. Tongue is midline. He moves upper and lower extremities with 5/5 strength. Negative Babinski. Speech is fluent. Light touch sensation in the extremities is intact. IMPRESSION: Extensive large left extracranial/sinus mass with extension into the orbit and from the middle cranial fossa as well as the frontal fossa with destruction of the middle cranial fossa, skull base floor and partial left frontal floor, orbital roof and lateral wall. 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 This extends all the way from the frontotemporal aspect to the sphenoid sinus into the cavernous sinus. There is also involvement of part of the petrous bone. PLAN: Given the extensive skull base destruction of the whole middle fossa and temporal floor as well as part of the frontal floor and orbital roof with intracranial extension, I would recommend resection of the intracranial component of this mass with reconstruction of the skull base. Subsequent extracranial and sinus resection of the mass can be considered by the maxillofacial surgeon, likely a staged procedure as well as possibly requiring ophthalmology for resection of the intraorbital component. For the intracranial component, we would have to undertake an orbitozygomatic approach and may not be able to completely resect this mass, especially if it is involving the cavernous sinus, and it appears it also extends into the superior orbital fissure. Any residual mass may need to be treated with radiation and/or chemotherapy. Discussed with the patient at length and also discussed with the oral surgeon, Dr. Brian Maradiaga. Dr. Maradiaga has recommended an ear, nose and throat consultation. Will also consult ophthalmology. Discussed the findings at length with the patient and explained to him the complexity of the current situation and this extensive destructive mass, and he understands. Therefore, the treatment plan will be outlined pending ENT and ophthalmology evaluation. MD CHINO Arita/JAMISON , 05:34 PM , 06:23 PM
[2017-12-24] MEDS: DOCUSATE SODIUM 50 MG/SENNA 8.6 MG TAB PO SCH (20:36)
[2017-12-24] MEDS: PRAVASTATIN SOD 20 MG TAB PO SCH (20:36)
[2017-12-24] MEDS: SODIUM CHLORIDE 0.9% FLUSH 10 ML FLUSH IV FLUSH SCH (20:36)
[2017-12-24] MEDS: ZOLPIDEM TARTRATE 5 MG TAB PO PRN (20:36)
[2017-12-24] MEDS: SODIUM CHLORIDE 0.9% FLUSH 10 ML FLUSH IV FLUSH PRN (23:55)
[2017-12-24] MEDS: carBAMazepine XR 200 MG TAB PO SCH (23:56)
[2017-12-25] VITALS (18 sets, daily range): BP systolic 115–148; BP diastolic 72–93; PULSE 66–108; RESP 16–18; TEMP 97.6–98.7; O2SAT 94–96
[2017-12-25] MEDS: MORPHINE SULFATE 4 MG/ML INJ IV PUSH PRN ×7 (03:59→22:22)
[2017-12-25] MEDS: SODIUM CHLORIDE 0.9% FLUSH 10 ML FLUSH IV FLUSH PRN (03:59)
[2017-12-25] MEDS: carBAMazepine XR 200 MG TAB PO SCH ×2 (08:20→21:04)
[2017-12-25] MEDS: SODIUM CHLORIDE 0.9% FLUSH 10 ML FLUSH IV FLUSH SCH ×2 (08:20→19:20)
[2017-12-25] MEDS: DOCUSATE SODIUM 50 MG/SENNA 8.6 MG TAB PO SCH ×2 (08:20→21:00)
--- NOTE | 2017-12-25 08:33 | MB ---
cc: Tera Mejia MD DATE: 12/24/2017 REASON FOR CONSULTATION: The patient with a large sinus mass with extension into the skull base, with loss of vision and hearing loss. HISTORY OF PRESENT ILLNESS: This is a 57-year-old male who is currently incarcerated for the past several years. He has a history of left tenriism squamous cell carcinoma which was resected in 2004. He subsequently had recurrence and had a second resection with skin graft at [facility]. He has had a history of skin cancer involving his chest wall and shoulder, which was resected in the past. He has a history of trigeminal neuralgia, hypertension and basal cell carcinoma. He states that over the past year, he started to develop left facial pain. He subsequently developed loss of vision in his left eye and states that his eye started to bulge. He also started to experience hearing loss in his left ear and states that he is unable to hear from his left ear. The patient was brought to the emergency room for further evaluation. He has undergone imaging, including maxillofacial CT scan on presentation. This showed a large 6.5 cm soft tissue mass in the posterior left base with extensive bony destruction at the left-sided paranasal sinuses, including the maxillary sinus, left sphenoid sinus and left posterior ethmoid. The mass is crossing the midline in the sphenoid and posterior nasal region and extending cephalad into the middle cranial fossa. There is left-sided proptosis and destruction of the left lateral wall of the left eye orbit was seen. There was also concern for evolving into the left cavernous sinus. The left maxillary sinus was opacified. The patient subsequently had a CT of the head, which again confirmed a 6.5 cm mass in the posterior left face with extensive bony destruction and extension into the middle cranial fossa. A head MRA was also obtained, which showed symmetric diameter and intact flow in the internal carotid artery. Flow was seen in the left ophthalmic artery into the posterior orbit. The patient also underwent a brain MRI, which showed a mass which is 8.7 cm, which is in the epicentered in the left sphenoid bone and causing extensive destruction of the bone and extending in all directions. There was deformity of the left eye orbit, with possible intraorbital extension and there was extension across the midline in the posterior nasopharynx. There was also encasement of the cavernous carotid artery. There was infiltration around the left mandibular condyle and causing mass effect in the anterior middle cranial fossa, with possible extension along the dura of the middle and cranial fossa. The patient has been evaluated by maxillofacial surgery, as well as neurosurgery. The patient complains of loss of vision in the left eye and hearing loss in the left ear. He has numbness in his left facial area. There are no focal deficits in the lower and upper extremities. REVIEW OF SYSTEMS: A comprehensive review of system was completed, which is negative except as described in the HPI. PAST MEDICAL HISTORY: 1. History of squamous cell carcinoma involving the left tenriism with recurrent disease. 2. History of skin cancer involving right anterior chest wall and shoulder area, status post resection, history of left trigeminal neuralgia, hypertension, history of basal cell carcinoma. PAST SURGICAL HISTORY: Squamous cell resection in 2004 and reexcision, history of graft placement to the left temporal area, history of skin cancer and removal from the chest wall and shoulder, history of tonsillectomy, history of hernia repair, history of basal cell cancer resection. MEDICATIONS: Senna/docusate p.r.n., Pravachol 20 mg p.o. at bedtime, carbamazepine 400 mg p.o. every 12 hours, Tylenol 650 p.o. every 4 hours, Zofran 4 mg IV every 6 hours, Reglan 5 mg every 6 hours, zolpidem 5 mg p.o. at bedtime, Percocet 5/325 p.o. every 6 hours p.r.n., morphine sulfate 2 mg IV p.r.n. pain, senna p.r.n., bisacodyl p.r.n., lactulose p.r.n. ALLERGIES: NO KNOWN DRUG ALLERGIES. FAMILY HISTORY: Reviewed and is noncontributory to this admission. SOCIAL HISTORY: The patient is currently incarcerated in custodial. He admits to tobacco abuse. He denies any drug abuse. No alcohol abuse. PHYSICAL EXAMINATION: VITAL SIGNS: Blood pressure is 140/80, pulse is in the 70s, temperature is 98.2, respiratory rate is 18. GENERAL: Ill-appearing, thin, cachectic male, in no apparent distress. HEENT: Left eye proptosis, lack of vision in the left eye. Hearing deficit in the left ear. NECK: Supple. No JVD. No bruits. No lymphadenopathy. CHEST: Clear to auscultation bilaterally. CARDIOVASCULAR: S1, S2. Regular rate and rhythm. ABDOMEN: Soft, nontender, nondistended. Bowel sounds are present. EXTREMITIES: Without edema or cyanosis. SKIN: Without any petechia and bruises. NEUROLOGIC: Loss of vision as described above in the left eye. Loss of hearing. Paresthesias in the left face. Speech is normal. No motor or sensory deficits in the upper or lower extremities. SKIN: History of skin graft in the left tenriism. LABORATORY DATA: WBC 9.5, hemoglobin 8.8, MCV 76.5, platelet count 644. Serum chemistry, sodium 138, potassium 4, chloride 103, CO2 27.5, BUN 6, creatinine 0.8, GFR 100, glucose 98, calcium 9.5. INR 0.9. UDS was negative. IMAGING: Was reviewed in the EMR and described above in the HPI. ASSESSMENT AND PLAN: This is a 57-year-old male who was brought to the emergency room with loss of vision in the left eye, loss of hearing in the left ear and facial pain. Imaging reveals an extensive large mass in the left sphenoid bone, which is exceeding 8.7 millimeters. There is extensive destruction of the facial bones. There is deformity of the left eye orbit. There is intraorbital extension causing proptosis of the left eye. The patient has a history of squamous cell carcinoma. 1. Large infiltrating mass of the left sphenoid bone, with extensive bony destruction. 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 However, a definitive diagnosis will be made based on the biopsy. This is a complicated situation. Patient has been evaluated by neurosurgery and maxillofacial surgery. He would require a complex surgery with reconstruction. I have reviewed Dr. Jose's note and also Dr. Pérez's note. The surgery will involve several specialties. This patient may require transfer to [facility]. I will defer this decision to the surgical specialties whether the surgery is feasible here at [facility]. In the postoperative setting, this patient will require radiation plus/minus chemotherapy. I will await further recommendations from the above-mentioned specialists. I have discussed this with the patient at length and I have explained to him the current situation. I did explain to him that the above-mentioned surgical intervention and further treatments carry a high risk of morbidity. I will let the surgeons explain further risks and benefits of the surgery to the patient. Thank you for allowing me to participate in the care of this patient. I will continue to follow this patient along. MD HALEY Cuellar/CARLOS , 12:48 AM , 01:30 AM SONYA
[2017-12-25] MEDS: oxyCODONE/ACETAMINOPHEN 10 MG/325 MG TAB PO PRN ×2 (09:46→21:06)
--- NOTE | 2017-12-25 11:23 | HHI.PR ---
Subjective Remarks 57-year-old male with a past medical history significant for hypertension and trigeminal neuralgia presents to the emergency department her evaluation of a headache. The patient is incarcerated and has been complaining of headaches that began in September 2013. The patient had an outpatient MRI done which he does not know the results. He reports that he lost eyesight in his left eye and hearing in his left ear in May 2017. He endorses blurry vision and nosebleeds with increasing weakness and left jaw tightness. 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 Head CT done in the emergency department significant for large soft tissue mass in the posterior left face with extensive bony destruction and extension to the middle cranial fossa. Patient denies any seizures. No chest pain/shortness of breath. No abdominal pain. No nausea/vomiting/diarrhea. 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 CAN BARELY SEE SHADOWS OUT OF LEFT EYE Discussed with patient and RN and case management and the GUARDS AT SIDE OF THE BED 4-5 SEEN BY ORAL MAXILLARY FACIAL, NEUROSURGERY, AND ONCOLOGY AWAIT OPHTHALMOLOGY AND ENT EVALS MAY NEED TRANSFER TO A TERTIARY CENTER DW RN AND PT AND CM AND GUARDS WANTS TO SHOWER Objective Vitals Vital Signs Date Time Temp Pulse Resp B/P (MAP) Pulse Ox O2 Delivery O2 Flow Rate FiO2 12/25/17 08:22 18 12/25/17 08:10 98.6 87 18 148/92 (110) 96 12/25/17 07:30 66 12/25/17 04:00 98.2 76 18 147/90 (109) 94 12/25/17 00:00 71 12/25/17 00:00 78 16 141/93 (109) 94 12/24/17 21:00 76 12/24/17 20:00 99.3 78 16 128/89 (102) 95 12/24/17 18:04 98.2 78 18 140/80 (100) 97 12/24/17 13:00 98.0 82 18 144/88 (106) 98 12/24/17 11:52 72 I/O 12/24/17 12/24/17 12/24/17 12/25/17 12/25/17 12/25/17 07:00 15:00 23:00 07:00 15:00 23:00 Intake Total 480 ml Balance 480 ml Intake Oral 480 ml # Voids 2 Result Diagram: 12/24/17 0604 12/24/17 0604 Other Results Laboratory Tests Test 12/23/17 19:50 12/24/17 06:04 12/24/17 10:42 White Blood Count 14.4 TH/MM3 9.5 TH/MM3 Red Blood Count 3.48 MIL/MM3 3.61 MIL/MM3 Hemoglobin 8.3 GM/DL 8.8 GM/DL Hematocrit 26.4 % 27.6 % Mean Corpuscular Volume 76.0 FL 76.5 FL Mean Corpuscular Hemoglobin 23.9 PG 24.4 PG Mean Corpuscular Hemoglobin Concent 31.4 % 32.0 % Red Cell Distribution Width 15.5 % 15.5 % Platelet Count 626 TH/MM3 644 TH/MM3 Mean Platelet Volume 6.3 FL 6.2 FL Neutrophils (%) (Auto) 76.3 % 65.6 % Lymphocytes (%) (Auto) 14.0 % 21.2 % Monocytes (%) (Auto) 8.7 % 11.0 % Eosinophils (%) (Auto) 0.5 % 1.2 % Basophils (%) (Auto) 0.5 % 1.0 % Neutrophils # (Auto) 11.0 TH/MM3 6.2 TH/MM3 Lymphocytes # (Auto) 2.0 TH/MM3 2.0 TH/MM3 Monocytes # (Auto) 1.3 TH/MM3 1.0 TH/MM3 Eosinophils # (Auto) 0.1 TH/MM3 0.1 TH/MM3 Basophils # (Auto) 0.1 TH/MM3 0.1 TH/MM3 CBC Comment DIFF FINAL DIFF FINAL Differential Comment Blood Urea Nitrogen 7 MG/DL 6 MG/DL Creatinine 0.72 MG/DL 0.80 MG/DL Random Glucose 90 MG/DL 98 MG/DL Calcium Level 9.1 MG/DL 9.5 MG/DL Sodium Level 135 MEQ/L 138 MEQ/L Potassium Level 3.9 MEQ/L 4.0 MEQ/L Chloride Level 102 MEQ/L 103 MEQ/L Carbon Dioxide Level 25.3 MEQ/L 27.5 MEQ/L Anion Gap 8 MEQ/L 8 MEQ/L Estimat Glomerular Filtration Rate 113 ML/MIN 100 ML/MIN Urine Opiates Screen NEG Urine Barbiturates Screen NEG Urine Amphetamines Screen NEG Urine Benzodiazepines Screen NEG Urine Cocaine Screen NEG Urine Cannabinoids Screen NEG Ethyl Alcohol Level LESS THAN 3 MG/DL Prothrombin Time 9.6 SEC Prothromb Time International Ratio 0.9 RATIO Activated Partial Thromboplast Time 28.1 SEC Imaging Last Impressions Neck Magnetic Resonance Angiography 12/24/17 Signed Impressions: Service Date/Time: Sunday, December 24, 2017 12:03 - CONCLUSION: No stenotic lesions seen. Left dominant vertebral system. Kuldeep Manuel MD Multiplanar Reconstruction 12/24/17 Signed Impressions: Service Date/Time: Saturday, December 23, 2017 20:20 - CONCLUSION: 3-D reconstruction of the facial bones as above. Vaughn Quiros MD Head Magnetic Resonance Angiography 12/24/17 Signed Impressions: Service Date/Time: Sunday, December 24, 2017 12:03 - CONCLUSION: Symmetric diameter an intact flow in the internal carotid artery. Some flow is documented in the left ophthalmic artery. Kuldeep Manuel MD Chest X-Ray 12/24/17 Signed Impressions: Service Date/Time: Sunday, December 24, 2017 12:55 - CONCLUSION: The lungs are clear. Kuldeep Manuel MD Brain MRI 12/24/17 Signed Impressions: Service Date/Time: Sunday, December 24, 2017 12:03 - CONCLUSION: 1. Large enhancing infiltrating mass in the left sphenoid bone measuring in excess of 8.7 cm, causing deformity of the left orbit with possible intraorbital extension posteriorly, extension across the midline in the posterior nasal pharynx, probable encasement of the cavernous carotid artery, infiltration around the left mandibular condyle, and causing mass effect on the anterior middle cranial fossa with possible extension along the dura of the middle cranial fossa. No definite evidence of intracranial extension the inner middle cranial fossa. Kuldeep Manuel MD Head CT 12/23/171930 Signed Impressions: Service Date/Time: Saturday, December 23, 2017 20:20 - CONCLUSION: 1. 6.5 cm soft tissue mass in the posterior left face with extensive bony destruction and extension into the middle cranial fossa. Left-sided proptosis. Sotero Herndon MD Maxillofacial CT 12/23/17 Signed Impressions: Service Date/Time: Saturday, December 23, 2017 20:20 - CONCLUSION: 1. Extensive bony destruction of the left face as above with extension into the middle cranial fossa. Left-sided proptosis. Sotero Herndon MD Objective Remarks GENERAL: Awake alert oriented talkative and cooperative has some hearing loss he states some left ear SKIN: Warm and dry. Left eye is abnormal in appearance with swelling around the orbit and eyelid HEAD: Atraumatic. Normocephalic. Decreased hearing left side EYES: Pupils equal and round. No scleral icterus. No injection or drainage. Left eye is of normal in appearance with swelling around the orbit and eyelid left side proptosis ENT: No nasal bleeding or discharge. Mucous membranes pink and moist. Tongue is midline NECK: Trachea midline. No JVD. CARDIOVASCULAR: Regular rate and rhythm. S1-S2 no S3 or S4 no heave or thrill or rub or gallop RESPIRATORY: No accessory muscle use. Clear to auscultation. Breath sounds equal bilaterally. GASTROINTESTINAL: Abdomen soft, non-tender, nondistended. Hepatic and splenic margins not palpable. MUSCULOSKELETAL: Extremities without clubbing, cyanosis, or edema. No obvious deformities. NEUROLOGICAL: Awake and alert. No obvious cranial nerve deficits. Motor grossly within normal limits. Five out of 5 muscle strength in the arms and legs. Normal speech. PSYCHIATRIC: Appropriate mood and affect; insight and judgment normal. Medications and IVs Current Medications Sodium Chloride (NS Flush) 2 ml UNSCH PRN IVF FLUSH AFTER USING IV ACCESS; Start 12/23/17 at 19:45; Stop 12/23/17 at 23:22; Status DC Ketorolac Tromethamine (Toradol Inj) 30 mg ONCE ONCE IVP Last administered on 12/23/17 19:41; Start 12/23/17 at 19:45; Stop 12/23/17 at 19:46; Status DC Diphenhydramine HCl (Benadryl Inj) 25 mg ONCE ONCE IVP Last administered on 19:41; Start 12/23/17 at 19:45; Stop 12/23/17 at 19:46; Status DC Metoclopramide HCl (Reglan Inj) 10 mg ONCE ONCE IVP Last administered on 19:41; Start 12/23/17 at 19:45; Stop 12/23/17 at 19:46; Status DC Sodium Chloride 1,000 ml @ 1,000 mls/hr Q1H ONCE IV Last administered on at 19:40; Start 12/23/17 at 19:31; Stop 12/23/17 at 20:30; Status DC Morphine Sulfate (Morphine Inj) 4 mg ONCE ONCE IV PUSH Last administered on 12/23/17at 21:05; Start 12/23/17 at 21:00; Stop 12/23/17 at 21:01; Status DC Morphine Sulfate (Morphine Inj) 4 mg Q3H PRN IV PUSH pain 6-10 Last administered on 12/24/17at 09:39; Start 12/23/17 at 23:15; Stop 12/24/17 at 11:30; Status DC Sodium Chloride (NS Flush) 2 ml UNSCH PRN IV FLUSH FLUSH AFTER USING IV ACCESS ; Start 12/23/17 at 23:15; Stop 12/24/17 at 11:30; Status DC Sodium Chloride (NS Flush) 2 ml BID IV FLUSH Last administered on 12/24/17at 09: 39; Start 12/24/17 at 09:00; Stop 12/24/17 at 11:30; Status DC Acetaminophen (Tylenol) 650 mg Q4H PRN PO TEMP > 100.4; Start 12/23/17 at 23:15 ; Stop 12/24/17 at 11:30; Status DC Ondansetron HCl (Zofran Inj) 4 mg Q6H PRN IVP NAUSEA OR VOMITING; Start at 23:15; Stop 12/24/17 at 11:30; Status DC Naloxone HCl (Narcan Inj) 0.4 mg UNSCH PRN IV PUSH SEE LABEL COMMENTS; Start at 23:15; Stop 12/24/17 at 11:30; Status DC Senna/Docusate Sodium (Rose-Colace) 1 tab BID PO ; Start 12/24/17 at 09:00; Stop 12/24/17 at 11:30; Status DC Magnesium Hydroxide (Milk Of Magnesia Liq) 30 ml Q12H PRN PO Mild constipation ; Start 12/23/17 at 23:15; Stop 12/24/17 at 11:30; Status DC Sennosides (Senokot) 17.2 mg Q12H PRN PO Moderate constipation; Start 12/23/17 at 23:15; Stop 12/24/17 at 11:30; Status DC Bisacodyl (Dulcolax Supp) 10 mg DAILY PRN RECTAL SEVERE CONSITIPATION/ IF NPO ; Start 12/23/17 at 23:15; Stop 12/24/17 at 11:30; Status DC Lactulose (Lactulose Liq) 30 ml DAILY PRN PO SEVERE CONSITIPATION/ IF PO; Start 12/23/17 at 23:15; Stop 12/24/17 at 11:30; Status DC Sodium Chloride (NS Flush) 2 ml UNSCH PRN IV FLUSH FLUSH AFTER USING IV ACCESS Last administered on 12/25/17at 03:59; Start 12/24/17 at 11:15 Sodium Chloride (NS Flush) 2 ml BID IV FLUSH Last administered on 12/25/17at 08: 20; Start 12/24/17 at 21:00 Acetaminophen (Tylenol) 650 mg Q4H PRN PO TEMP > 100.4; Start 12/24/17 at 11:15 Ondansetron HCl (Zofran Inj) 4 mg Q6H PRN IVP NAUSEA OR VOMITING; Start at 11:15 Metoclopramide HCl (Reglan Inj) 5 mg Q6H PRN IV PUSH NAUSEA OR VOMITING; Start 12/24/17 at 11:15 Zolpidem Tartrate (Ambien) 5 mg HS PRN PO INSOMNIA Last administered on at 20:36; Start 12/24/17 at 11:15 Oxycodone/ Acetaminophen (Percocet 5-325 Mg) 1 tab Q6H PRN PO PAIN SCALE 3 TO 5; Start 12/24/17 at 11:15 Oxycodone/ Acetaminophen (Percocet 10-325 Mg) 1 tab Q6H PRN PO PAIN SCALE 6 TO 10 Last administered on 12/25/17at 09:46; Start 12/24/17 at 11:15 Morphine Sulfate (Morphine Inj) 2 mg Q3H PRN IV PUSH Pain 3-5; if unable to take PO; Start 12/24/17 at 11:15 Morphine Sulfate (Morphine Inj) 4 mg Q3H PRN IV PUSH BREAKTHROUGH PAIN Last administered on 12/25/17at 08:16; Start 12/24/17 at 11:15 Naloxone HCl (Narcan Inj) 0.4 mg UNSCH PRN IV PUSH SEE LABEL COMMENTS; Start at 11:15 Senna/Docusate Sodium (Rose-Colace) 1 tab BID PO Last administered on 12/25/17at 08:20; Start 12/24/17 at 21:00 Magnesium Hydroxide (Milk Of Magnesia Liq) 30 ml Q12H PRN PO Mild constipation ; Start 12/24/17 at 11:15 Sennosides (Senokot) 17.2 mg Q12H PRN PO Moderate constipation; Start 12/24/17 at 11:15 Bisacodyl (Dulcolax Supp) 10 mg DAILY PRN RECTAL SEVERE CONSITIPATION; Start at 11:15 Lactulose (Lactulose Liq) 30 ml DAILY PRN PO SEVERE CONSITIPATION; Start at 11:15 Pravastatin Sodium (Pravachol) 20 mg HS PO Last administered on 12/24/17at 20:36 ; Start 12/24/17 at 21:00 Non-Formulary Medication 400 mg Q12HR PO ; Start 12/24/17 at 11:30; Status UNV Gadodiamide (Omniscan Pf Inj) 20 ml STK-MED ONCE IVCONTRAST Last administered on 12/24/17at 14:09; Start 12/24/17 at 14:09; Stop 12/24/17 at 14:10; Status DC Carbamazepine (TEGretol XR) 400 mg Q12HR PO Last administered on 12/25/17at 08:20 ; Start 12/24/17 at 21:00 A/P Assessment and Plan 1. Large soft tissue mass CT of the head significant for 6.5 cm soft tissue mass in the posterior left base with extensive bony destruction and extension into the middle cranial fossa , personally reviewed Medical oncology, neurosurgery and OMFS consulted, appreciate recommendations and assistance --ENT AND OPHTHALMOLOGY CONSULTS PENDING Morphine for pain Percocet as needed 2. Hypertension Patient not currently on antihypertensive Clonidine when necessary 3. Trigeminal neuralgia Symptoms may be secondary to mass Morphine as above FEN Regular diet Electrolytes: Replete when necessary Ambulation Discharge Planning Pending seeing all consultants Gabriel Causey DO Dec 25, 2017 11:23
--- NOTE | 2017-12-25 14:31 | PD.ONC.PN ---
Subjective Subjective Remarks Afebrile overnight. Patient resting in room. Just spoke with ENT, who recommended transfer to tertiary care center. No complaints at present. Objective Data Date Time Temp Pulse Resp B/P (MAP) Pulse Ox O2 Delivery O2 Flow Rate FiO2 12/25/17 11:53 90 12/25/17 11:38 98.7 80 18 115/72 (86) 94 12/25/17 08:22 18 12/25/17 08:10 98.6 87 18 148/92 (110) 96 12/25/17 07:30 66 12/25/17 04:00 98.2 76 18 147/90 (109) 94 12/25/17 00:00 71 12/25/17 00:00 78 16 141/93 (109) 94 12/24/17 21:00 76 12/24/17 20:00 99.3 78 16 128/89 (102) 95 12/24/17 18:04 98.2 78 18 140/80 (100) 97 Result Diagram: 12/24/1704 12/24/17 0604 Administered Medications Medications (Trade) Dose Ordered Sig/Rayo Route PRN Reason Start Time Stop Time Status Last Admin Dose Admin Sodium Chloride (NS Flush) 2 ml UNSCH PRN IV FLUSH FLUSH AFTER USING IV ACCESS 12/24/17 11:15 12/25/17 03:59 Sodium Chloride (NS Flush) 2 ml BID IV FLUSH 12/24/17 21:00 12/25/17 08:20 Zolpidem Tartrate (Ambien) 5 mg HS PRN PO INSOMNIA 12/24/17 11:15 12/24/17 20:36 Oxycodone/ Acetaminophen (Percocet 10-325 Mg) 1 tab Q6H PRN PO PAIN SCALE 6 TO 10 12/24/17 11:15 12/25/17 09:46 Morphine Sulfate (Morphine Inj) 4 mg Q3H PRN IV PUSH BREAKTHROUGH PAIN 12/24/17 11:15 12/25/17 11:38 Senna/Docusate Sodium (Rose-Colace) 1 tab BID PO 12/24/17 21:00 12/25/17 08:20 Pravastatin Sodium (Pravachol) 20 mg HS PO 12/24/17 21:00 12/24/17 20:36 Carbamazepine (TEGretol XR) 400 mg Q12HR PO 12/24/17 21:00 12/25/17 08:20 Objective Remarks GENERAL: Pleasant middle aged male, sitting up in room. hard of hearing out of left ear SKIN: Warm and dry. HEAD: Normocephalic. EYES: left eye proptosis. NECK: Supple, trachea midline. CARDIOVASCULAR: Regular rate and rhythm RESPIRATORY: Breath sounds equal bilaterally. No accessory muscle use. GASTROINTESTINAL: Abdomen soft, non-tender, nondistended. EXTREMITIES: No cyanosis, or edema. MUSCULOSKELETAL: Adequate muscle tone. NEUROLOGICAL: awake and alert. somewhat muffled speech due to inability to fully open jaw Assessment/Plan Problem List: (1) Neoplasm of face ICD Codes: D49.89 - Neoplasm of unspecified behavior of other specified sites Status: Acute Plan: --await input from surgical specialities, patient will likely require transfer to tertiary care center. History: over the past year, he started to develop left facial pain. He subsequently developed loss of vision in his left eye and states that his eye started to bulge. He also started to experience hearing loss in his left ear and states that he is unable to hear from his left ear. The patient was brought to the emergency room for further evaluation. +Large infiltrating mass of the left sphenoid bone, with extensive bony destruction. 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 However, a definitive diagnosis will be made based on the biopsy. 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 History of skin cancer involving right anterior chest wall and shoulder area, status post resection, history of left trigeminal neuralgia, hypertension, history of basal cell carcinoma. Plan 1. agree with transfer to tertiary care center. 2. I printed out and reviewed CT and MRI scans at patient's request. Attending Statement The exam, history, and the medical decision-making described in the above note were completed with the assistance of the mid-level provider. I reviewed and agree with the findings presented. I attest that I had a [id number] encounter with the patient on the same day, and personally performed and documented my assessment and findings in the medical record. Nazia Barger Dec 25, 2017 14:31 Tera Mejia MD Dec 25, 2017 19:23
[2017-12-25] MEDS: ZOLPIDEM TARTRATE 5 MG TAB PO PRN (21:04)
[2017-12-25] MEDS: PRAVASTATIN SOD 20 MG TAB PO SCH (21:05)
[2017-12-26] VITALS (16 sets, daily range): BP systolic 118–151; BP diastolic 79–93; PULSE 64–97; RESP 16–18; TEMP 94–98.3; O2SAT 94–100
[2017-12-26] MEDS: MORPHINE SULFATE 4 MG/ML INJ IV PUSH PRN ×7 (01:31→22:59)
[2017-12-26] MEDS: oxyCODONE/ACETAMINOPHEN 10 MG/325 MG TAB PO PRN ×3 (03:17→22:05)
[2017-12-26 07:00] LABS: AUTOMATED NEUTROPHIL # 8.4 TH/MM3 (1.8-7.7); BASOPHIL # 0.1 TH/MM3 (0-0.2); BASOPHIL % 0.8 % (0.0-2.0); EOSINOPHIL # 0.2 TH/MM3 (0-0.4); EOSINOPHIL % 1.6 % (0.0-4.0); HEMATOCRIT 29.8 % (39.0-51.0); HEMOGLOBIN 9.4 GM/DL (13.0-17.0); LYMPH % 16.1 % (9.0-44.0); LYMPHOCYTE # 1.9 TH/MM3 (1.0-4.8); MEAN CELL VOLUME 75.7 FL (80.0-100.0); MEAN CORPUSCULAR HEMOGLOBIN 23.8 PG (27.0-34.0); MEAN CORPUSCULAR HGB CONC 31.4 % (32.0-36.0); MEAN PLATELET VOLUME 6.4 FL (7.0-11.0); MONO % 10.7 % (0.0-8.0); MONOCYTE # 1.3 TH/MM3 (0-0.9); NEUT % 70.8 % (16.0-70.0); PLATELET COUNT 662 TH/MM3 (150-450); RED BLOOD COUNT 3.93 MIL/MM3 (4.50-5.90); RED CELL DISTRIBUTION WIDTH 15.5 % (11.6-17.2); WHITE BLOOD COUNT 11.9 TH/MM3 (4.0-11.0)
[2017-12-26 07:38] LABS: ALKALINE PHOSPHATASE 170 U/L (45-117); ALT (GPT) 39 U/L (12-78); AST (GOT) 23 U/L (15-37); BICARBONATE 28.8 MEQ/L (21.0-32.0); BLOOD UREA NITROGEN 14 MG/DL (7-18); CALCIUM 10.6 MG/DL (8.5-10.1); CHLORIDE 96 MEQ/L (98-107); CREATININE 0.89 MG/DL (0.60-1.30); FREE T4 1.01 NG/DL (0.76-1.46); GLOMERULAR FILTRATION RATE 89 ML/MIN (>89); GLUCOSE,RANDOM 91 MG/DL (74-106); MAGNESIUM 1.9 MG/DL (1.5-2.5); PHOSPHORUS 3.9 MG/DL (2.5-4.9); SODIUM (NA) 134 MEQ/L (136-145); TOTAL BILIRUBIN ADULT 0.3 MG/DL (0.2-1.0); TOTAL PROTEIN 8.2 GM/DL (6.4-8.2)
[2017-12-26] MEDS: DOCUSATE SODIUM 50 MG/SENNA 8.6 MG TAB PO SCH ×2 (07:58→19:53)
[2017-12-26] MEDS: SODIUM CHLORIDE 0.9% FLUSH 10 ML FLUSH IV FLUSH SCH ×2 (07:59→19:54)
[2017-12-26] MEDS: carBAMazepine XR 200 MG TAB PO SCH ×2 (07:59→19:53)
--- NOTE | 2017-12-26 08:14 | MB ---
cc: Danial Hernández MD DATE: 12/25/2017 HISTORY OF PRESENT ILLNESS: He is a 57-year-old inmate at a [facility], who complains of headache for a lengthy period of time and presents with headache, proptosis, decreased vision in the left eye of several months' duration. PHYSICAL EXAMINATION: Today reveals left-sided proptosis. The ears are clear. The left mandible is swollen without erythema. The nasal cavity reveals septal deviation to the left side. The oral cavity reveals some trismus. No obvious infection. The neck is soft, supple. No masses are noted. 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 IMPRESSION AND PLAN: At this time, the patient has an extensive base of skull tumor and he is presently eating and tolerating his pain with p.o. medication. He can likely be either transferred to another institution that has expertise in base of skull neoplasm such as [facility], [facility], [facility] or he can have this problem addressed as an outpatient. MD DEBORAH Doan/CARLOS , 03:03 PM , 05:26 PM
--- NOTE | 2017-12-26 10:59 | PD.CONS ---
History of Present Illness Service Ophthalmology Consult Requested By Reason for Consult orbital mass Primary Care Physician Unknown Diagnoses: History of Present Illness 57-year-old male inmate with h/o squamous cell excision of the left restorationism in 2004 c/o vision loss OS and left hearing loss since 05/2017. CT of the head significant for 6.5 cm soft tissue mass in the posterior left base with extensive bony destruction and extension into the middle cranial fossa and left orbit. Pt states the vision loss was gradual over a month period and has been stable since then. No significant ocular history. Past Family Social History Allergies: Coded Allergies: No Known Allergies (Unverified , 12/23/17) Physical Exam Vital Signs Vital Signs Date Time Temp Pulse Resp B/P (MAP) Pulse Ox O2 Delivery O2 Flow Rate FiO2 12/26/17 08:03 18 12/26/17 08:00 97.9 79 18 132/79 (96) 96 12/26/17 07:00 79 12/26/17 06:00 68 12/26/17 05:00 72 12/26/17 04:43 94.0 87 18 118/79 (92) 95 12/26/17 04:04 64 12/26/17 03:00 76 12/26/17 02:00 72 12/26/17 01:00 74 12/26/17 00:43 98.1 73 18 128/83 (98) 94 12/26/17 00:00 85 12/25/17 23:00 88 12/25/17 22:00 72 12/25/17 21:00 76 12/25/17 20:00 78 12/25/17 19:23 98.3 95 18 146/92 (110) 96 12/25/17 16:22 84 12/25/17 16:03 97.6 84 18 129/86 (100) 94 12/25/17 15:00 108 12/25/17 14:00 76 12/25/17 13:00 84 12/25/17 11:53 90 12/25/17 11:38 98.7 80 18 115/72 (86) 94 Physical Exam Va cc at near OD 20/20, OS HM EOM OD full, OS limited abduction OS, diplopia on left gaze CVF full OD, unable OS Pupils 2-1, APD OS IOP 7, 6 mm Hg Anterior exam OD - normal eyelid, C/S W&Q, K clear, AC deep, pupil round, lens clear OS - proptosis, C/S W&Q, K clear, AC deep, pupil round, lens clear Dilated exam OD - ON s/p/f, ves normal, vit clear, retina flat OS - ON s/p/f, ves normal, vit clear, retina flat Laboratory Laboratory Tests Test 12/26/17 05:41 White Blood Count 11.9 Red Blood Count 3.93 Hemoglobin 9.4 Hematocrit 29.8 Mean Corpuscular Volume 75.7 Mean Corpuscular Hemoglobin 23.8 Mean Corpuscular Hemoglobin Concent 31.4 Red Cell Distribution Width 15.5 Platelet Count 662 Mean Platelet Volume 6.4 Neutrophils (%) (Auto) 70.8 Lymphocytes (%) (Auto) 16.1 Monocytes (%) (Auto) 10.7 Eosinophils (%) (Auto) 1.6 Basophils (%) (Auto) 0.8 Neutrophils # (Auto) 8.4 Lymphocytes # (Auto) 1.9 Monocytes # (Auto) 1.3 Eosinophils # (Auto) 0.2 Basophils # (Auto) 0.1 CBC Comment DIFF FINAL Differential Comment Blood Urea Nitrogen 14 Creatinine 0.89 Random Glucose 91 Total Protein 8.2 Albumin 3.0 Calcium Level 10.6 Phosphorus Level 3.9 Magnesium Level 1.9 Alkaline Phosphatase 170 Aspartate Amino Transf (AST/SGOT) 23 Alanine Aminotransferase (ALT/SGPT) 39 Total Bilirubin 0.3 Sodium Level 134 Potassium Level 4.2 Chloride Level 96 Carbon Dioxide Level 28.8 Anion Gap 9 Estimat Glomerular Filtration Rate 89 Free Thyroxine 1.01 Thyroid Stimulating Hormone 3rd Gen 1.050 Result Diagram: 12/26/17 0541 12/26/17 0541 Assessment and Plan Problem List: (1) Optic neuropathy, compressive ICD Codes: H46.8 - Other optic neuritis Plan: Large tumor compressing on left optic nerve causing vision loss. Recommend transferring to tertiary care center for further care. Velma Chandra MD Dec 26, 2017 10:59
--- NOTE | 2017-12-26 14:56 | HHI.NSPN ---
(Shashank Gant) History Chief Complaint: Left facial pain, headaches, left hearing and vision loss. (Shashank Gant) Interval History A 57-year-old gentleman who has been an inmate at the [facility] for the past 4 or 5 years. 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 He states for the past several years, he has had complaints of worsening headaches in the left side of the face that started about 4 years ago. He has also had numbness in his face along with facial pain since 11/2016 and subsequently also lost vision in the left eye with hearing loss since 05/2017. More recently, he had an MRI scan of the brain, which revealed extensive facial, orbital and intracranial mass, and he presented to the emergency room last evening for altered mental status with somnolence, along with left eye proptosis and headaches. CT scan of the head was obtained, which revealed a very destructive mass involving the left side of the face extending into the maxillary sinus, the ethmoid sinus, sphenoid sinus and destruction of the whole left middle fossa skull base and part of the orbital roof, frontal floor and the lateral orbital wall. This extends intracranially all the way from the lateral aspect to the cavernous sinus with compression of the overlying temporal lobe with the intraorbital extension also. Subsequent MRI scan imaging confirms this mass with extracranial likely origin and intracranial and orbital extension. MR angiogram of the neck and brain did not show any vascular stenosis. He denies any numbness or paresthesias in his upper or lower extremities. 12/26/17: Pt awake and alert. Symptoms have not changed since admission. He complains of loss of hearing in left ear and vision in left eye. He complains of left facial numbness and also in the left side of his tongue and mouth. He has left facial pain and headaches. (Shashank Gant) Review of Systems General: Negative for: fever, chills, insomnia Respiratory: Negative for: shortness of breath, cough, sputum Cardiovascular: Negative for: chest pain Gastrointestinal: Negative for: nausea, vomitting, diarrhea, constipation ( Shashank Gant) Exam Results Vital Signs Date Time Temp Pulse Resp B/P (MAP) Pulse Ox O2 Delivery O2 Flow Rate FiO2 12/26/17 11:58 98.1 80 18 129/80 (96) 98 12/23/17 21:08 Room Air Intake and Output 12/26/17 12/26/17 12/27/17 08:00 16:00 00:00 Intake Total 480 ml Balance 480 ml (Shashank Gant) Physical Examination General: Patient resting in bed in no acute distress with two nursing home guards in the room. Eyes: Proptosis left eye. He also has left ptosis. Left pupil is 6mm NR right is 5mm slight reaction, he has recently been evaluated by Ophthalmology. Sclera is anicteric. Resp: CTA bilaterally Heart: NSR no murmurs. Abd: Soft positive bs Skin: He has a left temporal skin graft that is well healed. No rashes. He states he has had multiple skin cancer resections from his arms. Muscle: He moves all 4 extremities with good strength. Neuro: Pt is awake and alert. No lethargy. He has ptosis of the left eye and cannot lift the eyelid and has some mild left facial droop. He has Proptosis of the left globe. When I hold his eyelid open he cannot count fingers from the left eye and states its blurry. He has left facial numbness on exam. He cannot hear finger rub on the left side. (Shashank Gant) Lab, Micro, Other Results Last Impressions Neck Magnetic Resonance Angiography 12/24/17 0000 Signed Impressions: Service Date/Time: Sunday, December 24, 2017 12:03 - CONCLUSION: No stenotic lesions seen. Left dominant vertebral system. Kuldeep Manuel MD Multiplanar Reconstruction 12/24/17 0000 Signed Impressions: Service Date/Time: Saturday, December 23, 2017 20:20 - CONCLUSION: 3-D reconstruction of the facial bones as above. Vaughn Quiros MD Head Magnetic Resonance Angiography 12/24/17 0000 Signed Impressions: Service Date/Time: Sunday, December 24, 2017 12:03 - CONCLUSION: Symmetric diameter an intact flow in the internal carotid artery. Some flow is documented in the left ophthalmic artery. Kuldeep Manuel MD Chest X-Ray 12/24/17 0000 Signed Impressions: Service Date/Time: Sunday, December 24, 2017 12:55 - CONCLUSION: The lungs are clear. Kuldeep Manuel MD Brain MRI 12/24/17 0000 Signed Impressions: Service Date/Time: Sunday, December 24, 2017 12:03 - CONCLUSION: 1. Large enhancing infiltrating mass in the left sphenoid bone measuring in excess of 8.7 cm, causing deformity of the left orbit with possible intraorbital extension posteriorly, extension across the midline in the posterior nasal pharynx, probable encasement of the cavernous carotid artery, infiltration around the left mandibular condyle, and causing mass effect on the anterior middle cranial fossa with possible extension along the dura of the middle cranial fossa. No definite evidence of intracranial extension the inner middle cranial fossa. Kuldeep Manuel MD Head CT 12/23/17 193 Signed Impressions: Service Date/Time: Saturday, December 23, 2017 20:20 - CONCLUSION: 1. 6.5 cm soft tissue mass in the posterior left face with extensive bony destruction and extension into the middle cranial fossa. Left-sided proptosis. Sotero Herndon MD Maxillofacial CT 12/23/17 0000 Signed Impressions: Service Date/Time: Saturday, December 23, 2017 20:20 - CONCLUSION: 1. Extensive bony destruction of the left face as above with extension into the middle cranial fossa. Left-sided proptosis. Sotero Herndon MD Laboratory Tests Test 12/26/17 05:41 White Blood Count 11.9 TH/MM3 Red Blood Count 3.93 MIL/MM3 Hemoglobin 9.4 GM/DL Hematocrit 29.8 % Mean Corpuscular Volume 75.7 FL Mean Corpuscular Hemoglobin 23.8 PG Mean Corpuscular Hemoglobin Concent 31.4 % Red Cell Distribution Width 15.5 % Platelet Count 662 TH/MM3 Mean Platelet Volume 6.4 FL Neutrophils (%) (Auto) 70.8 % Lymphocytes (%) (Auto) 16.1 % Monocytes (%) (Auto) 10.7 % Eosinophils (%) (Auto) 1.6 % Basophils (%) (Auto) 0.8 % Neutrophils # (Auto) 8.4 TH/MM3 Lymphocytes # (Auto) 1.9 TH/MM3 Monocytes # (Auto) 1.3 TH/MM3 Eosinophils # (Auto) 0.2 TH/MM3 Basophils # (Auto) 0.1 TH/MM3 CBC Comment DIFF FINAL Differential Comment Blood Urea Nitrogen 14 MG/DL Creatinine 0.89 MG/DL Random Glucose 91 MG/DL Total Protein 8.2 GM/DL Albumin 3.0 GM/DL Calcium Level 10.6 MG/DL Phosphorus Level 3.9 MG/DL Magnesium Level 1.9 MG/DL Alkaline Phosphatase 170 U/L Aspartate Amino Transf (AST/SGOT) 23 U/L Alanine Aminotransferase (ALT/SGPT) 39 U/L Total Bilirubin 0.3 MG/DL Sodium Level 134 MEQ/L Potassium Level 4.2 MEQ/L Chloride Level 96 MEQ/L Carbon Dioxide Level 28.8 MEQ/L Anion Gap 9 MEQ/L Estimat Glomerular Filtration Rate 89 ML/MIN Free Thyroxine 1.01 NG/DL Thyroid Stimulating Hormone 3rd Gen 1.050 uIU/ML (Shashank Gant) Medical Decision Making Impression and Plan A: Extensive large left extracranial/sinus mass with extension into the orbit and from the middle cranial fossa as well as the frontal fossa with destruction of the middle cranial fossa, skull base floor and partial left frontal floor, orbital roof and lateral wall. 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 This extends all the way from the frontotemporal aspect to the sphenoid sinus and into the cavernous sinus. There is also involvement of part of the petrous bone. PLAN: Several consultants have recommended given the complexity of this mass that it be treated at a tertiary care center. Discussed with Dr. Jose who states pt can be seen at a tertiary care center outpatient. I discussed this with Dr. Causey who is the attending so he is aware. I also discussed the plan with the pt who also agrees and states other physicians from other specialties that have evaluated him also told him the same thing that he should be evaluated at a tertiary care center and he even asked me if he was going to [facility]. I told him I was not sure at the time where he would be referred to as there are several. (Shashank Gant) Attending Statement The exam, history, and the medical decision-making described in the above note were completed with the assistance of the mid-level provider. I reviewed and agree with the findings presented. I attest that I had a [id number] encounter with the patient on the same day, and personally performed and documented my assessment and findings in the medical record. All the consultants involved including ENT ophthalmology and maxillofacial surgery I recommended treatment at a tertiary care center. Accordingly the patient will be referred to a facility that can provide a comprehensive treatment of this skull base extracranial-intracranial intraorbital mass. (Adrien Jose MD) Shashank Gant Dec 26, 2017 14:56 Adrien Jose MD Dec 26, 2017 17:31
--- NOTE | 2017-12-26 15:06 | HHI.PR ---
Subjective Remarks 57-year-old male with a past medical history significant for hypertension and trigeminal neuralgia presents to the emergency department her evaluation of a headache. The patient is incarcerated and has been complaining of headaches that began in September 2013. The patient had an outpatient MRI done which he does not know the results. He reports that he lost eyesight in his left eye and hearing in his left ear in May 2017. He endorses blurry vision and nosebleeds with increasing weakness and left jaw tightness. The patient has a history of squamous cell excision of the left taoist in 2004. Head CT done in the emergency department significant for large soft tissue mass in the posterior left face with extensive bony destruction and extension to the middle cranial fossa. Patient denies any seizures. No chest pain/shortness of breath. No abdominal pain. No nausea/vomiting/diarrhea. 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 CAN BARELY SEE SHADOWS OUT OF LEFT EYE Discussed with patient and RN and case management and the GUARDS AT SIDE OF THE BED 4-5 SEEN BY ORAL MAXILLARY FACIAL, NEUROSURGERY, AND ONCOLOGY AWAIT OPHTHALMOLOGY AND ENT EVALS MAY NEED TRANSFER TO A TERTIARY CENTER DW RN AND PT AND CM AND GUARDS WANTS TO SHOWER 4-6 SEEN BY ALL CONSULTANTS CAN BE DISCHARGED TODAY THE [facility] CAN SET UP FOR OUTPATIENT EVALUATION AT A TERTIARY CENTER ALL FEEL CAN BE DONE AN OUTPATIENT DW RN AND CM AND PT AND GUARDS Objective Vitals Vital Signs Date Time Temp Pulse Resp B/P (MAP) Pulse Ox O2 Delivery O2 Flow Rate FiO2 12/26/17 11:58 98.1 80 18 129/80 (96) 98 12/26/17 11:54 18 12/26/17 11:40 18 12/26/17 08:00 97.9 79 18 132/79 (96) 96 12/26/17 07:00 79 12/26/17 06:00 68 12/26/17 05:00 72 12/26/17 04:43 94.0 87 18 118/79 (92) 95 12/26/17 04:04 64 12/26/17 03:00 76 12/26/17 02:00 72 12/26/17 01:00 74 12/26/17 00:43 98.1 73 18 128/83 (98) 94 12/26/17 00:00 85 12/25/17 23:00 88 12/25/17 22:00 72 12/25/17 21:00 76 12/25/17 20:00 78 12/25/17 19:23 98.3 95 18 146/92 (110) 96 12/25/17 16:22 84 12/25/17 16:03 97.6 84 18 129/86 (100) 94 I/O 12/25/17 12/25/17 12/25/17 12/26/17 12/26/17 12/26/17 07:00 15:00 23:00 07:00 15:00 23:00 Intake Total 720 ml 480 ml Balance 720 ml 480 ml Intake Oral 720 ml 480 ml # Voids 6 2 # Bowel Movements 1 Result Diagram: 12/26/17 0541 12/26/17 0541 Other Results Laboratory Tests Test 12/23/17 19:50 12/24/17 06:04 12/24/17 10:42 12/26/17 05:41 White Blood Count 14.4 TH/MM3 9.5 TH/MM3 11.9 TH/MM3 Red Blood Count 3.48 MIL/MM3 3.61 MIL/MM3 3.93 MIL/MM3 Hemoglobin 8.3 GM/DL 8.8 GM/DL 9.4 GM/DL Hematocrit 26.4 % 27.6 % 29.8 % Mean Corpuscular Volume 76.0 FL 76.5 FL 75.7 FL Mean Corpuscular Hemoglobin 23.9 PG 24.4 PG 23.8 PG Mean Corpuscular Hemoglobin Concent 31.4 % 32.0 % 31.4 % Red Cell Distribution Width 15.5 % 15.5 % 15.5 % Platelet Count 626 TH/MM3 644 TH/MM3 662 TH/MM3 Mean Platelet Volume 6.3 FL 6.2 FL 6.4 FL Neutrophils (%) (Auto) 76.3 % 65.6 % 70.8 % Lymphocytes (%) (Auto) 14.0 % 21.2 % 16.1 % Monocytes (%) (Auto) 8.7 % 11.0 % 10.7 % Eosinophils (%) (Auto) 0.5 % 1.2 % 1.6 % Basophils (%) (Auto) 0.5 % 1.0 % 0.8 % Neutrophils # (Auto) 11.0 TH/MM3 6.2 TH/MM3 8.4 TH/MM3 Lymphocytes # (Auto) 2.0 TH/MM3 2.0 TH/MM3 1.9 TH/MM3 Monocytes # (Auto) 1.3 TH/MM3 1.0 TH/MM3 1.3 TH/MM3 Eosinophils # (Auto) 0.1 TH/MM3 0.1 TH/MM3 0.2 TH/MM3 Basophils # (Auto) 0.1 TH/MM3 0.1 TH/MM3 0.1 TH/MM3 CBC Comment DIFF FINAL DIFF FINAL DIFF FINAL Differential Comment Blood Urea Nitrogen 7 MG/DL 6 MG/DL 14 MG/DL Creatinine 0.72 MG/DL 0.80 MG/DL 0.89 MG/DL Random Glucose 90 MG/DL 98 MG/DL 91 MG/DL Calcium Level 9.1 MG/DL 9.5 MG/DL 10.6 MG/DL Sodium Level 135 MEQ/L 138 MEQ/L 134 MEQ/L Potassium Level 3.9 MEQ/L 4.0 MEQ/L 4.2 MEQ/L Chloride Level 102 MEQ/L 103 MEQ/L 96 MEQ/L Carbon Dioxide Level 25.3 MEQ/L 27.5 MEQ/L 28.8 MEQ/L Anion Gap 8 MEQ/L 8 MEQ/L 9 MEQ/L Estimat Glomerular Filtration Rate 113 ML/MIN 100 ML/MIN 89 ML/MIN Urine Opiates Screen NEG Urine Barbiturates Screen NEG Urine Amphetamines Screen NEG Urine Benzodiazepines Screen NEG Urine Cocaine Screen NEG Urine Cannabinoids Screen NEG Ethyl Alcohol Level LESS THAN 3 MG/DL Prothrombin Time 9.6 SEC Prothromb Time International Ratio 0.9 RATIO Activated Partial Thromboplast Time 28.1 SEC Total Protein 8.2 GM/DL Albumin 3.0 GM/DL Phosphorus Level 3.9 MG/DL Magnesium Level 1.9 MG/DL Alkaline Phosphatase 170 U/L Aspartate Amino Transf (AST/SGOT) 23 U/L Alanine Aminotransferase (ALT/SGPT) 39 U/L Total Bilirubin 0.3 MG/DL Free Thyroxine 1.01 NG/DL Thyroid Stimulating Hormone 3rd Gen 1.050 uIU/ML Imaging Last Impressions Neck Magnetic Resonance Angiography 12/24/17 0000 Signed Impressions: Service Date/Time: Sunday, December 24, 2017 12:03 - CONCLUSION: No stenotic lesions seen. Left dominant vertebral system. Kuldeep Manuel MD Multiplanar Reconstruction 12/24/17 Signed Impressions: Service Date/Time: Saturday, December 23, 2017 20:20 - CONCLUSION: 3-D reconstruction of the facial bones as above. Vaughn Quiros MD Head Magnetic Resonance Angiography 12/24/17 Signed Impressions: Service Date/Time: Sunday, December 24, 2017 12:03 - CONCLUSION: Symmetric diameter an intact flow in the internal carotid artery. Some flow is documented in the left ophthalmic artery. Kuldeep Manuel MD Chest X-Ray 12/24/17 Signed Impressions: Service Date/Time: Sunday, December 24, 2017 12:55 - CONCLUSION: The lungs are clear. Kuldeep Manuel MD Brain MRI 12/24/17 Signed Impressions: Service Date/Time: Sunday, December 24, 2017 12:03 - CONCLUSION: 1. Large enhancing infiltrating mass in the left sphenoid bone measuring in excess of 8.7 cm, causing deformity of the left orbit with possible intraorbital extension posteriorly, extension across the midline in the posterior nasal pharynx, probable encasement of the cavernous carotid artery, infiltration around the left mandibular condyle, and causing mass effect on the anterior middle cranial fossa with possible extension along the dura of the middle cranial fossa. No definite evidence of intracranial extension the inner middle cranial fossa. Kuldeep Manuel MD Head CT 12/23/171930 Signed Impressions: Service Date/Time: Saturday, December 23, 2017 20:20 - CONCLUSION: 1. 6.5 cm soft tissue mass in the posterior left face with extensive bony destruction and extension into the middle cranial fossa. Left-sided proptosis. Sotero Herndon MD Maxillofacial CT 12/23/17 Signed Impressions: Service Date/Time: Saturday, December 23, 2017 20:20 - CONCLUSION: 1. Extensive bony destruction of the left face as above with extension into the middle cranial fossa. Left-sided proptosis. Sotero Herndon MD Objective Remarks GENERAL: Awake alert oriented talkative and cooperative has some hearing loss he states some left ear SKIN: Warm and dry. Left eye is abnormal in appearance with swelling around the orbit and eyelid HEAD: Atraumatic. Normocephalic. Decreased hearing left side EYES: Pupils equal and round. No scleral icterus. No injection or drainage. Left eye is ABnormal in appearance with swelling around the orbit and eyelid left side proptosis ENT: No nasal bleeding or discharge. Mucous membranes pink and moist. Tongue is midline NECK: Trachea midline. No JVD. CARDIOVASCULAR: Regular rate and rhythm. S1-S2 no S3 or S4 no heave or thrill or rub or gallop RESPIRATORY: No accessory muscle use. Clear to auscultation. Breath sounds equal bilaterally. GASTROINTESTINAL: Abdomen soft, non-tender, nondistended. Hepatic and splenic margins not palpable. MUSCULOSKELETAL: Extremities without clubbing, cyanosis, or edema. No obvious deformities. NEUROLOGICAL: Awake and alert. No obvious cranial nerve deficits. Motor grossly within normal limits. Five out of 5 muscle strength in the arms and legs. Normal speech. PSYCHIATRIC: Appropriate mood and affect; insight and judgment normal. Procedures NONE Medications and IVs Current Medications Sodium Chloride (NS Flush) 2 ml UNSCH PRN IVF FLUSH AFTER USING IV ACCESS; Start 12/23/17 at 19:45; Stop 12/23/17 at 23:22; Status DC Ketorolac Tromethamine (Toradol Inj) 30 mg ONCE ONCE IVP Last administered on 12/23/17at 19:41; Start 12/23/17 at 19:45; Stop 12/23/17 at 19:46; Status DC Diphenhydramine HCl (Benadryl Inj) 25 mg ONCE ONCE IVP Last administered on 19:41; Start 12/23/17 at 19:45; Stop 12/23/17 at 19:46; Status DC Metoclopramide HCl (Reglan Inj) 10 mg ONCE ONCE IVP Last administered on 19:41; Start 12/23/17 at 19:45; Stop 12/23/17 at 19:46; Status DC Sodium Chloride 1,000 ml @ 1,000 mls/hr Q1H ONCE IV Last administered on 19:40; Start 12/23/17 at 19:31; Stop 12/23/17 at 20:30; Status DC Morphine Sulfate (Morphine Inj) 4 mg ONCE ONCE IV PUSH Last administered on 21:05; Start 12/23/17 at 21:00; Stop 12/23/17 at 21:01; Status DC Morphine Sulfate (Morphine Inj) 4 mg Q3H PRN IV PUSH pain 6-10 Last administered on 12/24/17at 09:39; Start 12/23/17 at 23:15; Stop 12/24/17 at 11:30; Status DC Sodium Chloride (NS Flush) 2 ml UNSCH PRN IV FLUSH FLUSH AFTER USING IV ACCESS ; Start 12/23/17 at 23:15; Stop 12/24/17 at 11:30; Status DC Sodium Chloride (NS Flush) 2 ml BID IV FLUSH Last administered on 12/24/17at 09: 39; Start 12/24/17 at 09:00; Stop 12/24/17 at 11:30; Status DC Acetaminophen (Tylenol) 650 mg Q4H PRN PO TEMP > 100.4; Start 12/23/17 at 23:15 ; Stop 12/24/17 at 11:30; Status DC Ondansetron HCl (Zofran Inj) 4 mg Q6H PRN IVP NAUSEA OR VOMITING; Start at 23:15; Stop 12/24/17 at 11:30; Status DC Naloxone HCl (Narcan Inj) 0.4 mg UNSCH PRN IV PUSH SEE LABEL COMMENTS; Start at 23:15; Stop 12/24/17 at 11:30; Status DC Senna/Docusate Sodium (Rose-Colace) 1 tab BID PO ; Start 12/24/17 at 09:00; Stop 12/24/17 at 11:30; Status DC Magnesium Hydroxide (Milk Of Magnesia Liq) 30 ml Q12H PRN PO Mild constipation ; Start 12/23/17 at 23:15; Stop 12/24/17 at 11:30; Status DC Sennosides (Senokot) 17.2 mg Q12H PRN PO Moderate constipation; Start 12/23/17 at 23:15; Stop 12/24/17 at 11:30; Status DC Bisacodyl (Dulcolax Supp) 10 mg DAILY PRN RECTAL SEVERE CONSITIPATION/ IF NPO ; Start 12/23/17 at 23:15; Stop 12/24/17 at 11:30; Status DC Lactulose (Lactulose Liq) 30 ml DAILY PRN PO SEVERE CONSITIPATION/ IF PO; Start 12/23/17 at 23:15; Stop 12/24/17 at 11:30; Status DC Sodium Chloride (NS Flush) 2 ml UNSCH PRN IV FLUSH FLUSH AFTER USING IV ACCESS Last administered on 12/25/17 03:59; Start 12/24/17 at 11:15 Sodium Chloride (NS Flush) 2 ml BID IV FLUSH Last administered on 12/26/17at 07: 59; Start 12/24/17 at 21:00 Acetaminophen (Tylenol) 650 mg Q4H PRN PO TEMP > 100.4; Start 12/24/17 at 11:15 Ondansetron HCl (Zofran Inj) 4 mg Q6H PRN IVP NAUSEA OR VOMITING; Start at 11:15 Metoclopramide HCl (Reglan Inj) 5 mg Q6H PRN IV PUSH NAUSEA OR VOMITING; Start 12/24/17 at 11:15 Zolpidem Tartrate (Ambien) 5 mg HS PRN PO INSOMNIA Last administered on at 21:04; Start 12/24/17 at 11:15 Oxycodone/ Acetaminophen (Percocet 5-325 Mg) 1 tab Q6H PRN PO PAIN SCALE 3 TO 5; Start 12/24/17 at 11:15 Oxycodone/ Acetaminophen (Percocet 10-325 Mg) 1 tab Q6H PRN PO PAIN SCALE 6 TO 10 Last administered on 12/26/17at 10:40; Start 12/24/17 at 11:15 Morphine Sulfate (Morphine Inj) 2 mg Q3H PRN IV PUSH Pain 3-5; if unable to take PO; Start 12/24/17 at 11:15 Morphine Sulfate (Morphine Inj) 4 mg Q3H PRN IV PUSH BREAKTHROUGH PAIN Last administered on 12/26/17at 11:49; Start 12/24/17 at 11:15 Naloxone HCl (Narcan Inj) 0.4 mg UNSCH PRN IV PUSH SEE LABEL COMMENTS; Start at 11:15 Senna/Docusate Sodium (Rose-Colace) 1 tab BID PO Last administered on 12/26/17at 07:58; Start 12/24/17 at 21:00 Magnesium Hydroxide (Milk Of Magnesia Liq) 30 ml Q12H PRN PO Mild constipation ; Start 12/24/17 at 11:15 Sennosides (Senokot) 17.2 mg Q12H PRN PO Moderate constipation; Start 12/24/17 at 11:15 Bisacodyl (Dulcolax Supp) 10 mg DAILY PRN RECTAL SEVERE CONSITIPATION; Start at 11:15 Lactulose (Lactulose Liq) 30 ml DAILY PRN PO SEVERE CONSITIPATION; Start at 11:15 Pravastatin Sodium (Pravachol) 20 mg HS PO Last administered on 12/25/17at 21:05 ; Start 12/24/17 at 21:00 Non-Formulary Medication 400 mg Q12HR PO ; Start 12/24/17 at 11:30; Status UNV Gadodiamide (Omniscan Pf Inj) 20 ml STK-MED ONCE IVCONTRAST Last administered on 12/24/17at 14:09; Start 12/24/17 at 14:09; Stop 12/24/17 at 14:10; Status DC Carbamazepine (TEGretol XR) 400 mg Q12HR PO Last administered on 12/26/17at 07:59 ; Start 12/24/17 at 21:00 A/P Assessment and Plan 1. Large soft tissue mass CT of the head significant for 6.5 cm soft tissue mass in the posterior left base with extensive bony destruction and extension into the middle cranial fossa , personally reviewed Medical oncology, neurosurgery and OMFS consulted, appreciate recommendations and assistance --ENT AND OPHTHALMOLOGY CONSULTS ALL RECOMMEND TERTIARY CENTER Morphine for pain Percocet as needed 2. Hypertension Patient not currently on antihypertensive Clonidine when necessary 3. Trigeminal neuralgia Symptoms may be secondary to mass Morphine as above FEN Regular diet Electrolytes: Replete when necessary Ambulation CAN DC TO [facility] AND THEY CAN ARRANGE FOR FOLLOW UP AT [facility] CENTER REGARDING NEUROSURGERY, OMF, ENT, ONCOLOGY, OPHTHALMOLOGY Discharge Planning DC TO [facility] TO SEND TO [facility] FOR EVALUATION Gabriel Causey DO Dec 26, 2017 15:06
[2017-12-26] MEDS ORDERED: SENN187 PO (15:15)
[2017-12-26] MEDS ORDERED: OXYC1TAB63 PO (15:15)
--- NOTE | 2017-12-26 15:16 | HHI.DS ---
Discharge Summary Admission Date Dec 23, 2017 at 21:01 Discharge Date: Dec 26, 2017 Admitting Diagnosis Brain/Face Mass. 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 The patient is incarcerated and has been complaining of headaches that began in September 2013. The patient had an outpatient MRI done which he does not know the results. He reports that he lost eyesight in his left eye and hearing in his left ear in May 2017. He endorses blurry vision and nosebleeds with increasing weakness and left jaw tightness. 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 Head CT done in the emergency department significant for large soft tissue mass in the posterior left face with extensive bony destruction and extension to the middle cranial fossa. Patient denies any seizures. No chest pain/shortness of breath. No abdominal pain. No nausea/vomiting/diarrhea. CBC/BMP: 12/26/17 0541 12/26/17 0541 Significant Findings Laboratory Tests Test 12/23/17 19:50 12/24/17 06:04 12/24/17 10:42 12/26/17 05:41 White Blood Count 14.4 TH/MM3 (4.0-11.0) 11.9 TH/MM3 (4.0-11.0) Red Blood Count 3.48 MIL/MM3 (4.50-5.90) 3.61 MIL/MM3 (4.50-5.90) 3.93 MIL/MM3 (4.50-5.90) Hemoglobin 8.3 GM/DL (13.0-17.0) 8.8 GM/DL (13.0-17.0) 9.4 GM/DL (13.0-17.0) Hematocrit 26.4 % (39.0-51.0) 27.6 % (39.0-51.0) 29.8 % (39.0-51.0) Mean Corpuscular Volume 76.0 FL (80.0-100.0) 76.5 FL (80.0-100.0) 75.7 FL (80.0-100.0) Mean Corpuscular Hemoglobin 23.9 PG (27.0-34.0) 24.4 PG (27.0-34.0) 23.8 PG (27.0-34.0) Mean Corpuscular Hemoglobin Concent 31.4 % (32.0-36.0) 31.4 % (32.0-36.0) Platelet Count 626 TH/MM3 (150-450) 644 TH/MM3 (150-450) 662 TH/MM3 (150-450) Mean Platelet Volume 6.3 FL (7.0-11.0) 6.2 FL (7.0-11.0) 6.4 FL (7.0-11.0) Neutrophils (%) (Auto) 76.3 % (16.0-70.0) 70.8 % (16.0-70.0) Monocytes (%) (Auto) 8.7 % (0.0-8.0) 11.0 % (0.0-8.0) 10.7 % (0.0-8.0) Neutrophils # (Auto) 11.0 TH/MM3 (1.8-7.7) 8.4 TH/MM3 (1.8-7.7) Monocytes # (Auto) 1.3 TH/MM3 (0-0.9) 1.0 TH/MM3 (0-0.9) 1.3 TH/MM3 (0-0.9) Sodium Level 135 MEQ/L (136-145) 134 MEQ/L (136-145) Blood Urea Nitrogen 6 MG/DL (7-18) Prothrombin Time 9.6 SEC (9.8-11.6) Albumin 3.0 GM/DL (3.4-5.0) Calcium Level 10.6 MG/DL (8.5-10.1) Alkaline Phosphatase 170 U/L (45-117) Chloride Level 96 MEQ/L (98-107) Imaging Last Impressions Neck Magnetic Resonance Angiography 12/24/17 Signed Impressions: Service Date/Time: Sunday, December 24, 2017 12:03 - CONCLUSION: No stenotic lesions seen. Left dominant vertebral system. Kuldeep Manuel MD Multiplanar Reconstruction 12/24/17 Signed Impressions: Service Date/Time: Saturday, December 23, 2017 20:20 - CONCLUSION: 3-D reconstruction of the facial bones as above. Vaughn Quiros MD Head Magnetic Resonance Angiography 12/24/17 Signed Impressions: Service Date/Time: Sunday, December 24, 2017 12:03 - CONCLUSION: Symmetric diameter an intact flow in the internal carotid artery. Some flow is documented in the left ophthalmic artery. Kuldeep Manuel MD Chest X-Ray 12/24/17 Signed Impressions: Service Date/Time: Sunday, December 24, 2017 12:55 - CONCLUSION: The lungs are clear. Kuldeep Manuel MD Brain MRI 12/24/17 Signed Impressions: Service Date/Time: Sunday, December 24, 2017 12:03 - CONCLUSION: 1. Large enhancing infiltrating mass in the left sphenoid bone measuring in excess of 8.7 cm, causing deformity of the left orbit with possible intraorbital extension posteriorly, extension across the midline in the posterior nasal pharynx, probable encasement of the cavernous carotid artery, infiltration around the left mandibular condyle, and causing mass effect on the anterior middle cranial fossa with possible extension along the dura of the middle cranial fossa. No definite evidence of intracranial extension the inner middle cranial fossa. Kuldeep Manuel MD Head CT 12/23/171930 Signed Impressions: Service Date/Time: Saturday, December 23, 2017 20:20 - CONCLUSION: 1. 6.5 cm soft tissue mass in the posterior left face with extensive bony destruction and extension into the middle cranial fossa. Left-sided proptosis. Sotero Herndon MD Maxillofacial CT 12/23/17 Signed Impressions: Service Date/Time: Saturday, December 23, 2017 20:20 - CONCLUSION: 1. Extensive bony destruction of the left face as above with extension into the middle cranial fossa. Left-sided proptosis. Sotero Herndon MD PE at Discharge GENERAL: Awake alert oriented talkative and cooperative has some hearing loss he states some left ear SKIN: Warm and dry. Left eye is abnormal in appearance with swelling around the orbit and eyelid HEAD: Atraumatic. Normocephalic. Decreased hearing left side EYES: Pupils equal and round. No scleral icterus. No injection or drainage. Left eye is ABnormal in appearance with swelling around the orbit and eyelid left side proptosis ENT: No nasal bleeding or discharge. Mucous membranes pink and moist. Tongue is midline NECK: Trachea midline. No JVD. CARDIOVASCULAR: Regular rate and rhythm. S1-S2 no S3 or S4 no heave or thrill or rub or gallop RESPIRATORY: No accessory muscle use. Clear to auscultation. Breath sounds equal bilaterally. GASTROINTESTINAL: Abdomen soft, non-tender, nondistended. Hepatic and splenic margins not palpable. MUSCULOSKELETAL: Extremities without clubbing, cyanosis, or edema. No obvious deformities. NEUROLOGICAL: Awake and alert. No obvious cranial nerve deficits. Motor grossly within normal limits. Five out of 5 muscle strength in the arms and legs. Normal speech. PSYCHIATRIC: Appropriate mood and affect; insight and judgment normal. Hospital Course 57-year-old male with a past medical history significant for hypertension and trigeminal neuralgia presents to the emergency department her evaluation of a headache. The patient is incarcerated and has been complaining of headaches that began in September 2013. The patient had an outpatient MRI done which he does not know the results. He reports that he lost eyesight in his left eye and hearing in his left ear in May 2017. He endorses blurry vision and nosebleeds with increasing weakness and left jaw tightness. 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 Head CT done in the emergency department significant for large soft tissue mass in the posterior left face with extensive bony destruction and extension to the middle cranial fossa. Patient denies any seizures. No chest pain/shortness of breath. No abdominal pain. No nausea/vomiting/diarrhea. 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 CAN BARELY SEE SHADOWS OUT OF LEFT EYE Discussed with patient and RN and case management and the GUARDS AT SIDE OF THE BED 4-5 SEEN BY [facility] MAXILL[facility] FACIAL, NEUROSURGERY, AND ONCOLOGY AWAIT OPHTHALMOLOGY AND ENT EVALS MAY NEED TRANSFER TO A TERTIARY CENTER DW RN AND PT AND [place] WANTS TO SHOWER 4-6 SEEN BY ALL CONSULTANTS CAN BE DISCHARGED TODAY THE [facility]ENIOR LIVING CAN SET UP FOR OUTPATIENT EVALUATION AT A TERTIARY CENTER ALL FEEL CAN BE DONE AN OUTPATIENT [facility] RN AND CM AND PT ADRIA MARY Pt Condition on Discharge: Fair Discharge Disposition: Discharge Home Discharge Time: > 30 minutes Discharge Instructions DIET: Follow Instructions for: As Tolerated, No Restrictions Speech Therapy-Diet Recommends: Regular Activities you can perform: Regular-No Restrictions Follow up Referrals: PCP Follow-up - 2 Days New Medications: Oxycodone HCl/Acetaminophen (Oxycodone-Acetaminophen 5-325) 5 Mg-325 Mg Tablet 1 TAB PO Q6H PRN for PAIN 3 TO 10, #20 TAB Sennosides (Senna-Lax) 8.6 Mg Tab 17.2 MG PO Q12H PRN for Moderate constipation, #120 TAB Continued Medications: Carbamazepine ER 12 HR (Tegretol-Xr 12 HR) 400 Mg Tab 400 MG PO Q12HR for brain mass, #60 TAB 0 Refills Pravastatin (Pravastatin) 20 Mg Tab 20 MG PO DAILY for Cholesterol Management, #30 TAB 0 Refills Discontinued Medications: Aspirin DR (Aspirin EC) 81 Mg Tabdr 81 MG PO DAILY, TAB 0 Refills Simvastatin (Zocor) 5 Mg Tab 5 MG PO DAILY for Cholesterol Management, #30 TAB 0 Refills Gabriel Causey DO Dec 26, 2017 15:16
[2017-12-26] MEDS: PRAVASTATIN SOD 20 MG TAB PO SCH (19:53)
[2017-12-27] VITALS (10 sets, daily range): BP systolic 126–158; BP diastolic 90–97; PULSE 59–120; RESP 16–20; TEMP 97.7–98.9; O2SAT 95–98
[2017-12-27] MEDS: MORPHINE SULFATE 4 MG/ML INJ IV PUSH PRN ×6 (02:03→21:37)
[2017-12-27] MEDS: oxyCODONE/ACETAMINOPHEN 10 MG/325 MG TAB PO PRN ×3 (04:26→20:26)
[2017-12-27] MEDS: DOCUSATE SODIUM 50 MG/SENNA 8.6 MG TAB PO SCH ×2 (08:43→20:26)
[2017-12-27] MEDS: carBAMazepine XR 200 MG TAB PO SCH ×2 (08:43→20:27)
[2017-12-27] MEDS: SODIUM CHLORIDE 0.9% FLUSH 10 ML FLUSH IV FLUSH SCH ×2 (08:44→20:28)
--- NOTE | 2017-12-27 11:07 | HHI.PR ---
Subjective Remarks 57-year-old male with a past medical history significant for hypertension and trigeminal neuralgia presents to the emergency department her evaluation of a headache. The patient is incarcerated and has been complaining of headaches that began in September 2013. The patient had an outpatient MRI done which he does not know the results. He reports that he lost eyesight in his left eye and hearing in his left ear in May 2017. He endorses blurry vision and nosebleeds with increasing weakness and left jaw tightness. The patient has a history of squamous cell excision of the left alevism in 2004. Head CT done in the emergency department significant for large soft tissue mass in the posterior left face with extensive bony destruction and extension to the middle cranial fossa. Patient denies any seizures. No chest pain/shortness of breath. No abdominal pain. No nausea/vomiting/diarrhea. 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 CAN BARELY SEE SHADOWS OUT OF LEFT EYE Discussed with patient and RN and case management and the GUARDS AT SIDE OF THE BED 4-5 SEEN BY ORAL MAXILLARY FACIAL, NEUROSURGERY, AND ONCOLOGY AWAIT OPHTHALMOLOGY AND ENT EVALS MAY NEED TRANSFER TO A TERTIARY CENTER DW RN AND PT AND CM AND GUARDS WANTS TO SHOWER 4-6 SEEN BY ALL CONSULTANTS CAN BE DISCHARGED TODAY THE [facility] CAN SET UP FOR OUTPATIENT EVALUATION AT A TERTIARY CENTER ALL FEEL CAN BE DONE AN OUTPATIENT DW RN AND CM AND PT AND GUARDS 4-7 WAS DCED YESTERDAY DID NOT LEAVE WILL DC TO [facility] TODAY AND THEY CAN REFER PATIENT TO A TERTIARY CARE CENTER AN OUTPATIENT DW RN AND PATIENT AND CM AND GUARDS Objective Vitals Vital Signs Date Time Temp Pulse Resp B/P (MAP) Pulse Ox O2 Delivery O2 Flow Rate FiO2 12/27/17 08:21 97.8 78 16 126/90 (102) 97 12/27/17 08:10 76 12/27/17 04:23 98.1 79 18 131/96 (108) 96 12/27/17 04:09 75 12/27/17 00:01 80 12/26/17 23:01 98.1 97 16 151/90 (110) 97 12/26/17 20:14 83 12/26/17 19:50 82 16 135/93 (107) 96 12/26/17 16:46 18 12/26/17 16:00 98.3 88 16 120/80 (93) 100 12/26/17 11:58 98.1 80 18 129/80 (96) 98 12/26/17 11:40 18 I/O 12/26/17 12/26/17 12/26/17 12/27/17 12/27/17 12/27/17 07:00 15:00 23:00 07:00 15:00 23:00 Intake Total 480 ml 1080 ml 480 ml Balance 480 ml 1080 ml 480 ml Intake Oral 480 ml 1080 ml 480 ml # Voids 2 4 5 # Bowel Movements 1 0 Result Diagram: 12/26/17 0541 12/26/17 0541 Other Results Laboratory Tests Test 12/26/17 05:41 White Blood Count 11.9 TH/MM3 Red Blood Count 3.93 MIL/MM3 Hemoglobin 9.4 GM/DL Hematocrit 29.8 % Mean Corpuscular Volume 75.7 FL Mean Corpuscular Hemoglobin 23.8 PG Mean Corpuscular Hemoglobin Concent 31.4 % Red Cell Distribution Width 15.5 % Platelet Count 662 TH/MM3 Mean Platelet Volume 6.4 FL Neutrophils (%) (Auto) 70.8 % Lymphocytes (%) (Auto) 16.1 % Monocytes (%) (Auto) 10.7 % Eosinophils (%) (Auto) 1.6 % Basophils (%) (Auto) 0.8 % Neutrophils # (Auto) 8.4 TH/MM3 Lymphocytes # (Auto) 1.9 TH/MM3 Monocytes # (Auto) 1.3 TH/MM3 Eosinophils # (Auto) 0.2 TH/MM3 Basophils # (Auto) 0.1 TH/MM3 CBC Comment DIFF FINAL Differential Comment Blood Urea Nitrogen 14 MG/DL Creatinine 0.89 MG/DL Random Glucose 91 MG/DL Total Protein 8.2 GM/DL Albumin 3.0 GM/DL Calcium Level 10.6 MG/DL Phosphorus Level 3.9 MG/DL Magnesium Level 1.9 MG/DL Alkaline Phosphatase 170 U/L Aspartate Amino Transf (AST/SGOT) 23 U/L Alanine Aminotransferase (ALT/SGPT) 39 U/L Total Bilirubin 0.3 MG/DL Sodium Level 134 MEQ/L Potassium Level 4.2 MEQ/L Chloride Level 96 MEQ/L Carbon Dioxide Level 28.8 MEQ/L Anion Gap 9 MEQ/L Estimat Glomerular Filtration Rate 89 ML/MIN Hemoglobin A1c 6.0 % Free Thyroxine 1.01 NG/DL Thyroid Stimulating Hormone 3rd Gen 1.050 uIU/ML Imaging Last Impressions Neck Magnetic Resonance Angiography 12/24/17 Signed Impressions: Service Date/Time: Sunday, December 24, 2017 12:03 - CONCLUSION: No stenotic lesions seen. Left dominant vertebral system. Kuldeep Manuel MD Multiplanar Reconstruction 12/24/17 Signed Impressions: Service Date/Time: Saturday, December 23, 2017 20:20 - CONCLUSION: 3-D reconstruction of the facial bones as above. Vaughn Quiros MD Head Magnetic Resonance Angiography 12/24/17 Signed Impressions: Service Date/Time: Sunday, December 24, 2017 12:03 - CONCLUSION: Symmetric diameter an intact flow in the internal carotid artery. Some flow is documented in the left ophthalmic artery. Kuldeep Manuel MD Chest X-Ray 12/24/17 Signed Impressions: Service Date/Time: Sunday, December 24, 2017 12:55 - CONCLUSION: The lungs are clear. Kuldeep Manuel MD Brain MRI 12/24/17 Signed Impressions: Service Date/Time: Sunday, December 24, 2017 12:03 - CONCLUSION: 1. Large enhancing infiltrating mass in the left sphenoid bone measuring in excess of 8.7 cm, causing deformity of the left orbit with possible intraorbital extension posteriorly, extension across the midline in the posterior nasal pharynx, probable encasement of the cavernous carotid artery, infiltration around the left mandibular condyle, and causing mass effect on the anterior middle cranial fossa with possible extension along the dura of the middle cranial fossa. No definite evidence of intracranial extension the inner middle cranial fossa. Kuldeep Manuel MD Head CT 12/23/171930 Signed Impressions: Service Date/Time: Saturday, December 23, 2017 20:20 - CONCLUSION: 1. 6.5 cm soft tissue mass in the posterior left face with extensive bony destruction and extension into the middle cranial fossa. Left-sided proptosis. Sotero Herndon MD Maxillofacial CT 12/23/17 Signed Impressions: Service Date/Time: Saturday, December 23, 2017 20:20 - CONCLUSION: 1. Extensive bony destruction of the left face as above with extension into the middle cranial fossa. Left-sided proptosis. Sotero Herndon MD Objective Remarks GENERAL: Awake alert oriented talkative and cooperative has some hearing loss he states some left ear SKIN: Warm and dry. Left eye is abnormal in appearance with swelling around the orbit and eyelid HEAD: Atraumatic. Normocephalic. Decreased hearing left side EYES: Pupils equal and round. No scleral icterus. No injection or drainage. Left eye is ABnormal in appearance with swelling around the orbit and eyelid left side proptosis ENT: No nasal bleeding or discharge. Mucous membranes pink and moist. Tongue is midline NECK: Trachea midline. No JVD. CARDIOVASCULAR: Regular rate and rhythm. S1-S2 no S3 or S4 no heave or thrill or rub or gallop RESPIRATORY: No accessory muscle use. Clear to auscultation. Breath sounds equal bilaterally. GASTROINTESTINAL: Abdomen soft, non-tender, nondistended. Hepatic and splenic margins not palpable. MUSCULOSKELETAL: Extremities without clubbing, cyanosis, or edema. No obvious deformities. NEUROLOGICAL: Awake and alert. No obvious cranial nerve deficits. Motor grossly within normal limits. Five out of 5 muscle strength in the arms and legs. Normal speech. PSYCHIATRIC: Appropriate mood and affect; insight and judgment normal. Procedures NONE Medications and IVs Current Medications Sodium Chloride (NS Flush) 2 ml UNSCH PRN IVF FLUSH AFTER USING IV ACCESS; Start 12/23/17 at 19:45; Stop 12/23/17 at 23:22; Status DC Ketorolac Tromethamine (Toradol Inj) 30 mg ONCE ONCE IVP Last administered on 12/23/17 19:41; Start 12/23/17 at 19:45; Stop 12/23/17 at 19:46; Status DC Diphenhydramine HCl (Benadryl Inj) 25 mg ONCE ONCE IVP Last administered on 19:41; Start 12/23/17 at 19:45; Stop 12/23/17 at 19:46; Status DC Metoclopramide HCl (Reglan Inj) 10 mg ONCE ONCE IVP Last administered on 19:41; Start 12/23/17 at 19:45; Stop 12/23/17 at 19:46; Status DC Sodium Chloride 1,000 ml @ 1,000 mls/hr Q1H ONCE IV Last administered on at 19:40; Start 12/23/17 at 19:31; Stop 12/23/17 at 20:30; Status DC Morphine Sulfate (Morphine Inj) 4 mg ONCE ONCE IV PUSH Last administered on 12/23/17at 21:05; Start 12/23/17 at 21:00; Stop 12/23/17 at 21:01; Status DC Morphine Sulfate (Morphine Inj) 4 mg Q3H PRN IV PUSH pain 6-10 Last administered on 12/24/17at 09:39; Start 12/23/17 at 23:15; Stop 12/24/17 at 11:30; Status DC Sodium Chloride (NS Flush) 2 ml UNSCH PRN IV FLUSH FLUSH AFTER USING IV ACCESS ; Start 12/23/17 at 23:15; Stop 12/24/17 at 11:30; Status DC Sodium Chloride (NS Flush) 2 ml BID IV FLUSH Last administered on 12/24/17at 09: 39; Start 12/24/17 at 09:00; Stop 12/24/17 at 11:30; Status DC Acetaminophen (Tylenol) 650 mg Q4H PRN PO TEMP > 100.4; Start 12/23/17 at 23:15 ; Stop 12/24/17 at 11:30; Status DC Ondansetron HCl (Zofran Inj) 4 mg Q6H PRN IVP NAUSEA OR VOMITING; Start at 23:15; Stop 12/24/17 at 11:30; Status DC Naloxone HCl (Narcan Inj) 0.4 mg UNSCH PRN IV PUSH SEE LABEL COMMENTS; Start at 23:15; Stop 12/24/17 at 11:30; Status DC Senna/Docusate Sodium (Rose-Colace) 1 tab BID PO ; Start 12/24/17 at 09:00; Stop 12/24/17 at 11:30; Status DC Magnesium Hydroxide (Milk Of Magnesia Liq) 30 ml Q12H PRN PO Mild constipation ; Start 12/23/17 at 23:15; Stop 12/24/17 at 11:30; Status DC Sennosides (Senokot) 17.2 mg Q12H PRN PO Moderate constipation; Start 12/23/17 at 23:15; Stop 12/24/17 at 11:30; Status DC Bisacodyl (Dulcolax Supp) 10 mg DAILY PRN RECTAL SEVERE CONSITIPATION/ IF NPO ; Start 12/23/17 at 23:15; Stop 12/24/17 at 11:30; Status DC Lactulose (Lactulose Liq) 30 ml DAILY PRN PO SEVERE CONSITIPATION/ IF PO; Start 12/23/17 at 23:15; Stop 12/24/17 at 11:30; Status DC Sodium Chloride (NS Flush) 2 ml UNSCH PRN IV FLUSH FLUSH AFTER USING IV ACCESS Last administered on 12/25/17at 03:59; Start 12/24/17 at 11:15 Sodium Chloride (NS Flush) 2 ml BID IV FLUSH Last administered on 12/27/17at 08: 44; Start 12/24/17 at 21:00 Acetaminophen (Tylenol) 650 mg Q4H PRN PO TEMP > 100.4; Start 12/24/17 at 11:15 Ondansetron HCl (Zofran Inj) 4 mg Q6H PRN IVP NAUSEA OR VOMITING; Start at 11:15 Metoclopramide HCl (Reglan Inj) 5 mg Q6H PRN IV PUSH NAUSEA OR VOMITING; Start 12/24/17 at 11:15 Zolpidem Tartrate (Ambien) 5 mg HS PRN PO INSOMNIA Last administered on at 21:04; Start 12/24/17 at 11:15 Oxycodone/ Acetaminophen (Percocet 5-325 Mg) 1 tab Q6H PRN PO PAIN SCALE 3 TO 5; Start 12/24/17 at 11:15 Oxycodone/ Acetaminophen (Percocet 10-325 Mg) 1 tab Q6H PRN PO PAIN SCALE 6 TO 10 Last administered on 12/27/17at 04:26; Start 12/24/17 at 11:15 Morphine Sulfate (Morphine Inj) 2 mg Q3H PRN IV PUSH Pain 3-5; if unable to take PO; Start 12/24/17 at 11:15 Morphine Sulfate (Morphine Inj) 4 mg Q3H PRN IV PUSH BREAKTHROUGH PAIN Last administered on 12/27/17at 08:44; Start 12/24/17 at 11:15 Naloxone HCl (Narcan Inj) 0.4 mg UNSCH PRN IV PUSH SEE LABEL COMMENTS; Start at 11:15 Senna/Docusate Sodium (Rose-Colace) 1 tab BID PO Last administered on 12/27/17at 08:43; Start 12/24/17 at 21:00 Magnesium Hydroxide (Milk Of Magnesia Liq) 30 ml Q12H PRN PO Mild constipation ; Start 12/24/17 at 11:15 Sennosides (Senokot) 17.2 mg Q12H PRN PO Moderate constipation; Start 12/24/17 at 11:15 Bisacodyl (Dulcolax Supp) 10 mg DAILY PRN RECTAL SEVERE CONSITIPATION; Start at 11:15 Lactulose (Lactulose Liq) 30 ml DAILY PRN PO SEVERE CONSITIPATION; Start at 11:15 Pravastatin Sodium (Pravachol) 20 mg HS PO Last administered on 12/26/17at 19:53 ; Start 12/24/17 at 21:00 Non-Formulary Medication 400 mg Q12HR PO ; Start 12/24/17 at 11:30; Status UNV Gadodiamide (Omniscan Pf Inj) 20 ml STK-MED ONCE IVCONTRAST Last administered on 12/24/17at 14:09; Start 12/24/17 at 14:09; Stop 12/24/17 at 14:10; Status DC Carbamazepine (TEGretol XR) 400 mg Q12HR PO Last administered on 12/27/17at 08:43 ; Start 12/24/17 at 21:00 A/P Problem List: (1) Brain tumor ICD Code: D49.6 - Neoplasm of unspecified behavior of brain Status: Acute (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 Large soft tissue mass CT of the head significant for 6.5 cm soft tissue mass in the posterior left base with extensive bony destruction and extension into the middle cranial fossa , personally reviewed Medical oncology, neurosurgery and OMFS consulted, appreciate recommendations and assistance --ENT AND OPHTHALMOLOGY CONSULTS ALL RECOMMEND TERTIARY CENTER Morphine for pain Percocet as needed 2. Hypertension Patient not currently on antihypertensive Clonidine when necessary 3. Trigeminal neuralgia Symptoms may be secondary to mass Morphine as above FEN Regular diet Electrolytes: Replete when necessary Ambulation CAN DC TO [facility] AND THEY CAN ARRANGE FOR FOLLOW UP AT TERTIARY CENTER REGARDING NEUROSURGERY, OMF, ENT, ONCOLOGY, OPHTHALMOLOGY Discharge Planning DC TO [facility] TO SEND TO [facility] CENTER FOR EVALUATION Gabriel Causey DO Dec 27, 2017 11:07
[2017-12-27] MEDS: PRAVASTATIN SOD 20 MG TAB PO SCH (20:26)
== END 2017-12-27 21:48 | DRG 55 ==
LOC: EEVIPCON 19:18 → NEPE 19:18 → NEDA 21:01 → HCIN 12-24 00:19
PROVIDERS: ADMIT Hospitalist; ATTEND Hospitalist
DX: D49.6 Neoplasm of unspecified behavior of brain (principal); H05.20 Unspecified exophthalmos; I10 Essential (primary) hypertension; H46.9 Unspecified optic neuritis; D49.2 Neoplasm of unspecified behavior of bone, soft tissue, and skin; G50.0 Trigeminal neuralgia; H54.62 Unqualified visual loss, left eye, normal vision right eye; F17.210 Nicotine dependence, cigarettes, uncomplicated; H91.92 Unspecified hearing loss, left ear; R53.1 Weakness; E78.5 Hyperlipidemia, unspecified; Z85.828 Personal history of other malignant neoplasm of skin; Z65.3 Problems related to other legal circumstances
CPT/HCPCS: 70450; 70486; 70544; 70548; 70553; 71046; 76377; 80048; 80053; 80307; 83036; 83735; 84100; 84439; 84443; 85025; 85610; 85730; 86850; 86900; 86901; 93005; 96361; 96374; 96375; A9579; J1200; J1885; J2270; J2765; J7030